=== PATIENT | female | born 1935 | race Caucasian/White ===

== ENCOUNTER → 2017-09-20 10:07 | Outpatient (CLI) | payer MEDICARE, SELFPAY ==
[2017-09-20 11:30] LABS: Hematocrit 42.7 % (36-46); Hemoglobin 14.5 g/dL (12.0-16.0); Mean Corpuscular HGB Conc 34.1 % (30-36); Mean Corpuscular Hemoglobin 30.9 PG (26-34); Mean Corpuscular Volume 90.8 fL (80-100); Platelet Count 205 X10^3/uL (150-400); Red Cell Distribution Width 13.4 % (11.6-14.8); White Blood Cell Count 6.1 X10^3/uL (4.5-11.0)
[2017-09-20 11:54] LABS: Neutrophils Absolute Manual 4148 /uL (3000-5900); Total Cells Counted 100
[2017-09-20 12:02] LABS: Alanine Aminotransferase 38 IU/L (9-52); Albumin 4.1 g/dL (3.5-5.0); Albumin Globulin Ratio 1.3 (1.0-2.8); Alkaline Phosphatase 86 U/L (38-126); Aspartate Aminotransferase 38 IU/L (14-36); BUN Creatinine Ratio 35.7 (6-22); Bilirubin Total 0.6 mg/dL (0.2-1.3); Calcium 10.2 mg/dL (8.4-10.2); Cholesterol 201 mg/dL (140-199); Estimated Glomerular Filt Rate > 60.0 mL/min (>60); Globulin 3.2 g/dL (1.7-4.1); Glucose 99 mg/dL (80-110); HDL Cholesterol 62 mg/dL (40-60); HEMOLYSIS 25 (0-50); LDL Cholesterol Calculated 118 mg/dL (<100); Potassium 4.7 mmol/L (3.4-5.1); Sodium 139 mmol/L (137-145); Total Protein 7.3 g/dL (6.3-8.2); Triglycerides 106 mg/dL (35-150)
[2017-09-20 12:18] LABS: Vitamin D 25 Hydroxy (D3) 44.7 ng/mL (30.0-100.0)
[2017-09-22 15:29] LABS: Parathyroid Hormone Int 70 pg/mL (14-64)
== END ==
PROVIDERS: Family Provider Family Medicine; PCP Family Medicine; Visit Provider Family Medicine
DX: E21.3 Hyperparathyroidism, unspecified (principal); I10 Essential (primary) hypertension; Z13.820 Encounter for screening for osteoporosis
CPT/HCPCS: 36415; 80053; 80061; 82306; 83970; 85025

== ENCOUNTER → 2017-12-13 09:48 | Outpatient (CLI) | payer MEDICARE, SELFPAY ==
[2017-12-13 12:17] LABS: Vitamin D 25 Hydroxy (D3) 52.1 ng/mL (30.0-100.0)
[2017-12-15 14:44] LABS: Parathyroid Hormone Int 54 pg/mL (14-64)
== END ==
PROVIDERS: Family Provider Family Medicine; PCP Family Medicine; Visit Provider Internal Medicine Endocrinology, Diabetes & Metabolism
DX: M81.0 Age-related osteoporosis without current pathological fracture (principal); E21.3 Hyperparathyroidism, unspecified; Z78.0 Asymptomatic menopausal state; Z90.722 Acquired absence of ovaries, bilateral
CPT/HCPCS: 36415; 77080; 82306; 83970

== ENCOUNTER → 2018-03-13 09:52 | Outpatient (CLI) | payer MEDICARE, SELFPAY ==
[2018-03-13 10:54] LABS: Add Manual Diff / Slide Review NO; Basophils Percent Auto 0.9 % (0-2); Eosinophils Percent Auto 3.6 % (2-4); Hematocrit 43.3 % (36-46); Hemoglobin 14.6 g/dL (12.0-16.0); Lymphocytes Percent Auto 22.2 % (25-40); Mean Corpuscular HGB Conc 33.7 % (30-36); Mean Corpuscular Hemoglobin 30.3 PG (26-34); Mean Corpuscular Volume 90.2 fL (80-100); Monocytes Percent Auto 6.9 % (3-14); Neutrophils Absolute Auto 3600 /uL (3000-5900); Neutrophils Percent Auto 66.4 % (50-75); Platelet Count 212 X10^3/uL (150-400); Red Blood Cell Count 4.81 X10^6/uL (4.0-5.2); Red Cell Distribution Width 13.2 % (11.6-14.8); White Blood Cell Count 5.5 X10^3/uL (4.5-11.0)
[2018-03-13 11:16] LABS: Alanine Aminotransferase 30 IU/L (9-52); Albumin 4.2 g/dL (3.5-5.0); Albumin Globulin Ratio 1.4 (1.0-2.8); Alkaline Phosphatase 53 U/L (38-126); Aspartate Aminotransferase 30 IU/L (14-36); BUN Creatinine Ratio 31.4 (6-22); Bilirubin Total 0.5 mg/dL (0.2-1.3); Blood Urea Nitrogen 22 mg/dL (7-17); Calcium 10.4 mg/dL (8.4-10.2); Carbon Dioxide 29 mmol/L (22-32); Chloride 104 mmol/L (98-107); Cholesterol 179 mg/dL (140-199); Estimated Glomerular Filt Rate > 60.0 mL/min (>60); Glucose 93 mg/dL (80-110); HDL Cholesterol 65 mg/dL (40-60); HEMOLYSIS < 15 (0-50); LDL Cholesterol Calculated 95 mg/dL (<100); Potassium 4.5 mmol/L (3.4-5.1); Sodium 142 mmol/L (137-145); Total Protein 7.2 g/dL (6.3-8.2); Triglycerides 94 mg/dL (35-150)
[2018-03-13 11:56] LABS: Vitamin D 25 Hydroxy (D3) 45.4 ng/mL (30.0-100.0)
[2018-03-13 12:09] LABS: Thyroid Stimulating Hormone 2.11 uIU/mL (0.47-4.68)
== END ==
PROVIDERS: PCP Family Medicine; Visit Provider Family Medicine
DX: E21.3 Hyperparathyroidism, unspecified (principal); E83.52 Hypercalcemia; I10 Essential (primary) hypertension; M81.0 Age-related osteoporosis without current pathological fracture
CPT/HCPCS: 36415; 80053; 80061; 82306; 84443; 85025

== ENCOUNTER → 2018-03-29 13:53 | Outpatient (CLI) | payer MEDICARE, SELFPAY ==
--- NOTE | 2018-03-29 13:54 | DI.ECHO.S_ITS ---
[facility]+ [facility] +---------+ : : [address] : : : : [id number] : : : : Phone: [phone]---------+ Echocardiogram Report + + :Name: CESARIO DRAKE Study Date: 03/29/2018 Height: 65 in : :[facility] Weight: 190 lb : : Gender: Female BSA: 1.9 m2 : :: 1935 Age: 83 yrs BP: 164/72 mmHg: :Reason For Study: Edema : : Performed By: Tanna Nuñez : :Referring: JAE GAGE : + + Interpretation Summary The left ventricular cavity is small. There is mild concentric left ventricular hypertrophy. The ejection fraction is estimated to be 75-80%. The left ventricle is hyperdynamic. The right ventricle grossly appears normal in size with probable normal systolic function. Right ventricular systolic pressure is normal. There is thickening and sclerosis with reduced leaflet excursion of the non- coronary cusp of the aortic valve. Mild aortic stenosis is present. The calculated aortic valve area is 1.7 cm2. The IVC is of normal diameter and collapses greater than 50% with a sniff. This suggests a low right atrial pressure of 3 mm Hg. No other echocardiographic abnormalities seen. Given this patient's normal right ventricular function, normal pulmonary artery pressure and normal CVP, the edema is unlikely related to a cardiac cause. The small hyperdynamic left ventricle also suggests some degree of volume depletion. Clinical correlation suggested. Procedure: A two-dimensional transthoracic echocardiogram with color flow and Doppler was performed. The study quality was technically adequate. There is no prior echocardiogram noted for this patient. The patient was in normal sinus rhythm during the exam. Left Ventricle: The left ventricular cavity is small. There is mild concentric left ventricular hypertrophy. The ejection fraction is estimated to be 75-80%. The left ventricle is hyperdynamic. Diastolic parameters suggest a relaxation abnormality of the left ventricle, consistent with probable normal filling pressures. Right Ventricle: The right ventricle grossly appears normal in size with probable normal systolic function. Atria: The left atrial size is normal. Right atrial size is normal. The interatrial septum is intact with no evidence for an atrial septal defect. Mitral Valve: The mitral valve is grossly normal. There is trace mitral regurgitation. Aortic Valve: Leaflet mobility is moderately reduced. The aortic valve is moderately calcified. There is thickening and sclerosis with reduced leaflet excursion of the non-coronary cusp of the aortic valve. Mild aortic stenosis is present. The calculated aortic valve area is 1.7 cm2. The aortic valve area is 1.3 centimeters squared by planimetry. The peak aortic velocity is 2.3 m/sec. The aortic valve mean gradient is 10 mmHg. Severity ratio 0.53. No aortic regurgitation is present. Tricuspid Valve: The tricuspid valve leaflets are thin and pliable. There is trace tricuspid regurgitation. The right ventricular systolic pressure is estimated to be at least 32 mmHg based on an estimated right atrial pressure of 3 mm Hg. Right ventricular systolic pressure is normal. Pulmonic Valve: The pulmonic valve is not well seen, but is grossly normal. There is trace pulmonic regurgitation. Great Vessels: The aortic root is normal size. The dimensions of the ascending aorta are normal. The IVC is of normal diameter and collapses greater than 50% with a sniff. This suggests a low right atrial pressure of 3 mm Hg. Pericardium/ Pleura There is no pericardial effusion. There is no pleural effusion. MMode/2D Measurements & Calculations LVIDd: 4.6 cm LVOT diam: 2.0 cm LVIDs: 2.4 cm Ao root diam: 2.7 cm FS: 47.2 % Aortic Jxn: 2.3 cm EPSS: 0.28 cm asc Aorta Diam: 2.9 cm IVSd: 0.97 cm Ao Arch Diam (Prox Trans): 2.5 cm LVPWd: 0.87 cm LV ceballos. diameter/BSA (cm/m^2): 2.4 LV sys. diameter/BSA (cm/m^2): 1.3 LA dimension: 3.1 cm RA long axis: 4.1 cm LA A2 area: 14.3 cm2 RA area: 12.8 cm2 LA A4 area: 15.4 cm2 RA vol: 34.0 ml LA length (vol): 4.4 cm RA : 17.6 ml/m2 LA vol: 42.4 ml IVC diam: 1.8 cm LA vol index: 21.9 ml/m2 MEGHANA (plan): 1.3 cm2 Doppler Measurements & Calculations Ao V2 max: 229.3 cm/sec LVOT Max Curt: 100.9 cm/sec Ao V2 mean: 136.9 cm/sec LV V1 max P.1 mmHg Ao max P.0 mmHg LV V1 VTI: 26.9 cm Ao mean P.5 mmHg MEGHANA(I,D): 1.7 cm2 Ao V2 VTI: 50.9 cm MEGHANA(V,D): 1.4 cm2 sev ratio: 0.53 MEGHANA indexed to BSA (cm^2/m^2): 0.89 MV E max curt: 70.6 cm/sec TR max curt: 267.8 cm/sec MV A max curt: 93.5 cm/sec TR max P.7 mmHg MV E/A: 0.76 PA V2 max: 99.7 cm/sec Med Peak E' Curt: 6.0 cm/sec PA V2 mean: 63.8 cm/sec E/E' med: 11.8 PA mean P.0 mmHg Lat Peak E' Curt: 6.7 cm/sec PA Accel Time: 0.11 sec E/E' lat: 10.5 E/e' average: 11.1 MV dec time: 0.32 sec MV P1/2t: 95.1 msec MV P1/2t max curt: 71.0 cm/sec MVA(P1/2t): 2.3 cm2 Reading Physician:03:39 PM
== END ==
PROVIDERS: Family Provider Family Medicine; PCP Family Medicine; Visit Provider Family Medicine
DX: I35.0 Nonrheumatic aortic (valve) stenosis (principal); R60.0 Localized edema
CPT/HCPCS: 93306

== ENCOUNTER → 2018-08-03 12:51 | Outpatient (CLI) | payer MEDICARE, SELFPAY ==
--- NOTE | 2018-08-03 | DI.MRI.S_ITS ---
PROCEDURE: MR THORACIC SPINE WO CON INDICATIONS: THORACIC SPINE PAIN. TECHNIQUE: Noncontrast sagittal T1 spine echo and T2 fast spin echo, sagittal STIR, axial T1 and T2 fast spin echo through the thoracic spine. COMPARISON: [facility], RG, XR C-SPINE 2-3V, 04/23/2006, 12:29. [facility], CT, L-SPINE WITHOUT CONTRAST, 02/16/2010, 19:02. FINDINGS: Image quality: Excellent. Alignment and Curvature: Posterior fusion is present at T1-T2. Bone Marrow: Marrow is of normal overall signal. No acute vertebral body compression fractures. Spinal Cord: Visualized spinal cord is normal in size and signal. Paraspinous Soft Tissues: No paravertebral masses. Miscellaneous: On axial images, central canal and foramina appear widely patent at all scanned levels. Multilevel disc desiccation is present. Prominent lateral disc osteophyte complexes are present bilaterally at T10-11, right T9-T10. IMPRESSION: 1. No spinal stenosis or foraminal narrowing. Multilevel disc desiccation. Dictated by: Gracie Oconnor M.D. on 08/05/2018 at 13:05 Approved by: Gracei Oconnor M.D. on 08/05/2018 at 13:47
== END ==
PROVIDERS: PCP Family Medicine; Visit Provider Physical Medicine & Rehabilitation
DX: M54.6 Pain in thoracic spine (principal); Z98.1 Arthrodesis status
CPT/HCPCS: 72146

== ENCOUNTER → 2018-08-23 13:09 | Outpatient (CLI) | payer MEDICARE, SELFPAY ==
--- NOTE | 2018-08-23 | DI.MRI.S_ITS ---
PROCEDURE: MR LUMBAR SPINE WO CON INDICATIONS: Radiculopathy, lumbar region TECHNIQUE: Noncontrast sagittal T1 spin echo and T2 fast echo, sagittal STIR, axial T1 and T2 fast spin echo through the lumbar spine. In cases with scoliosis, additional coronal T2 fast spin echo may be performed. COMPARISON: [facility], MR, L-SPINE WITHOUT CONTRAST, 11/05/2006, 9:39. [facility], MR, L-SPINE WITHOUT CONTRAST, 06/17/2014, 10:10. [facility], MR, MR THORACIC SPINE WO CON, 08/03/2018, 13:08. [facility], CT, L-SPINE WITHOUT CONTRAST, 02/16/2010, 19:02. [facility], MR, L-SPINE WITHOUT CONTRAST, 11/18/2008, 19:18. FINDINGS: Image quality: Diagnostic, with note made of motion artifact. Alignment and Curvature: Mild grade 1 anterolisthesis is seen at L3-L4 and L4-L5. S-shaped scoliotic curvature is seen. Bone Marrow: Marrow is of normal overall signal. No acute vertebral body compression fractures. Scattered foci are seen, which are hyperintense on T1-weighted and T2-weighted imaging, which are most consistent with benign vertebral body hemangiomas. Spinal Cord: Conus medullaris terminates at the L1 level. Visualized cord demonstrates normal signal and size. Paraspinous Soft Tissues: No paravertebral masses. T12-L1: Moderate loss of disc height is seen. Loss of disc signal is seen. Moderate disc bulge is seen, which is eccentric to the left. Likely mild directed endplate osteophytes are present. There is moderate left-sided and no significant right-sided neural foraminal narrowing seen. Mild to moderate central canal narrowing is seen. These degenerative changes are similar to 2015. L1-L2: The disc height is well-preserved. Loss of disc signal is seen at this level. Moderate disc bulge is seen, which is eccentric to the left. There is moderate left-sided and no significant right-sided neural foraminal narrowing seen. [id number] central canal narrowing is seen. When comparison is made with the prior examination, these findings are similar. L2-L3: Moderate loss of disc height is seen. Loss of disc signal is seen. Moderate to prominent disc bulge is seen, which is eccentric to the left. Mild facet joint hypertrophy is seen. Mild to moderate bilateral neural foraminal narrowing is seen. At least moderate central canal narrowing is seen, as on series 6 image 17. When comparison is made with the prior examination, these findings are similar. L3-L4: Mild to moderate loss of disc height and disc signal can be seen at this level. Moderate to prominent disc bulge is seen. Prominent facet hypertrophy is seen. There is moderate right-sided and moderate to severe left-sided neural foraminal narrowing seen. Severe central canal narrowing is seen at this level, as on series 6 image 21. These imaging findings have progressed compared to the prior MRI. L4-L5: Mild to moderate loss of disc height and disc signal can be seen at this level. Moderate disc bulge is seen, which is eccentric to the right. Moderate to prominent right-sided and moderate left-sided neural foraminal narrowing can be seen. There is mild to moderate left-sided and moderate right-sided neural foraminal narrowing seen. There has been removal of portions of the posterior elements. Mild central canal narrowing is seen. When comparison is made with the prior examination, these findings are similar. L5-S1: At least moderate loss of disc height and disc signal can be seen at this level. Moderate generalized disc bulge is seen. Mild facet joint hypertrophy is seen. There is minimal right-sided and moderate left-sided neural foraminal narrowing. No significant central canal narrowing can be seen. No significant change from the prior. IMPRESSION: Multiple levels of lumbar spine degenerative change are seen, which are relatively similar compared to 2015. However, there is mild progression of degenerative change at L3-L4 compared to the prior MRI. Dictated by: Curtis Hernandez M.D. on 08/23/2018 at 13:36 Approved by: Curtis Hernandez M.D. on 08/23/2018 at 13:47
== END ==
PROVIDERS: PCP Family Medicine; Visit Provider Physical Medicine & Rehabilitation
DX: M54.16 Radiculopathy, lumbar region (principal); M47.9 Spondylosis, unspecified
CPT/HCPCS: 72148

== ENCOUNTER → 2018-10-22 12:09 | Outpatient (CLI) | payer MEDICARE, SELFPAY ==
[2018-10-22 13:02] LABS: Alanine Aminotransferase 23 IU/L (9-52); Albumin 4.2 g/dL (3.5-5.0); Albumin Globulin Ratio 1.4 (1.0-2.8); Alkaline Phosphatase 75 U/L (38-126); Aspartate Aminotransferase 32 IU/L (14-36); Bilirubin Total 0.5 mg/dL (0.2-1.3); Blood Urea Nitrogen 20 mg/dL (7-17); Calcium 10.6 mg/dL (8.4-10.2); Carbon Dioxide 30 mmol/L (22-32); Chloride 101 mmol/L (98-107); Estimated Glomerular Filt Rate > 60.0 mL/min (>60); Globulin 3.1 g/dL (1.7-4.1); Glucose 94 mg/dL (80-110); HEMOLYSIS 20 (0-50); Potassium 4.7 mmol/L (3.4-5.1); Sodium 139 mmol/L (137-145); Total Protein 7.3 g/dL (6.3-8.2)
[2018-10-22 14:32] LABS: TSH w/ Reflex to FT4 1.88 uIU/mL (0.47-4.68)
[2018-10-22 15:26] LABS: Vitamin D 25 Hydroxy (D3) 47.6 ng/mL (30.0-100.0)
[2018-10-24 14:59] LABS: Parathyroid Hormone Int 47 pg/mL (14-64)
[2018-10-26 13:19] LABS: Ionized Calcium 5.9 mg/dL (4.8-5.6)
== END ==
PROVIDERS: PCP Family Medicine; Visit Provider Internal Medicine
DX: M85.851 Other specified disorders of bone density and structure, right thigh (principal); Z78.0 Asymptomatic menopausal state; E04.2 Nontoxic multinodular goiter; E21.0 Primary hyperparathyroidism; Z90.722 Acquired absence of ovaries, bilateral; Z87.891 Personal history of nicotine dependence
CPT/HCPCS: 36415; 77080; 80053; 82306; 82330; 83970; 84100; 84443

== ENCOUNTER → 2019-10-02 12:44 | Outpatient (CLI) | payer MEDICARE, SELFPAY ==
[2019-10-02 13:47] LABS: Alanine Aminotransferase 22 IU/L (<35); Albumin 4.2 g/dL (3.5-5.0); Albumin Globulin Ratio 1.4 (1.0-2.8); Alkaline Phosphatase 53 U/L (38-126); Aspartate Aminotransferase 29 IU/L (14-36); BUN Creatinine Ratio 34.2 (6-22); Bilirubin Total 0.6 mg/dL (0.2-1.3); Blood Urea Nitrogen 27 mg/dL (7-17); Calcium 11.1 mg/dL (8.4-10.2); Carbon Dioxide 30 mmol/L (22-32); Chloride 101 mmol/L (98-107); Estimated Glomerular Filt Rate > 60.0 mL/min (>60); Glucose 138 mg/dL (80-110); HEMOLYSIS < 15 (0-50); Magnesium 2.1 mg/dL (1.6-2.3); Potassium 4.7 mmol/L (3.4-5.1); Sodium 139 mmol/L (137-145); Total Protein 7.2 g/dL (6.3-8.2)
== END ==
PROVIDERS: Nurse Practitioner; PCP Student in an Organized Health Care Education/Training Program; Referring Provider Student in an Organized Health Care Education/Training Program; Visit Provider Student in an Organized Health Care Education/Training Program
DX: Z51.81 Encounter for therapeutic drug level monitoring (principal); I10 Essential (primary) hypertension; Z79.899 Other long term (current) drug therapy
CPT/HCPCS: 36415; 80053; 83735

== ENCOUNTER → 2019-10-10 14:26 | Outpatient (CLI) | payer MEDICARE, SELFPAY ==
[2019-10-10 16:22] LABS: BUN Creatinine Ratio 37.3 (6-22); Blood Urea Nitrogen 22 mg/dL (7-17); Calcium 10.8 mg/dL (8.4-10.2); Carbon Dioxide 28 mmol/L (22-32); Chloride 101 mmol/L (98-107); Estimated Glomerular Filt Rate > 60.0 mL/min (>60); Glucose 93 mg/dL (80-110); HEMOLYSIS < 15 (0-50); Magnesium 2.1 mg/dL (1.6-2.3); Potassium 4.1 mmol/L (3.4-5.1); Sodium 137 mmol/L (137-145)
[2019-10-10 17:17] LABS: Vitamin D 25 Hydroxy (D3) 54.3 ng/mL (30.0-100.0)
[2019-10-11 10:08] LABS: Calcium 10.6 mg/dL (8.7-10.3); Parathyroid Hormone, Intact 46 pg/mL (15-65)
== END ==
PROVIDERS: PCP Student in an Organized Health Care Education/Training Program; Referring Provider Nurse Practitioner; Visit Provider Nurse Practitioner
DX: E21.3 Hyperparathyroidism, unspecified (principal); E83.52 Hypercalcemia; I10 Essential (primary) hypertension; R60.0 Localized edema; Z79.899 Other long term (current) drug therapy
CPT/HCPCS: 36415; 80048; 82306; 82310; 83735; 83970

== ENCOUNTER → 2019-10-31 14:03 | Outpatient (CLI) | payer MEDICARE, SELFPAY ==
[2019-10-31 15:17] LABS: BUN Creatinine Ratio 33.3 (6-22); Blood Urea Nitrogen 22 mg/dL (7-17); Calcium 10.8 mg/dL (8.4-10.2); Carbon Dioxide 29 mmol/L (22-32); Chloride 99 mmol/L (98-107); Estimated Glomerular Filt Rate > 60.0 mL/min (>60); Glucose 119 mg/dL (80-110); HEMOLYSIS < 15 (0-50); Magnesium 2.2 mg/dL (1.6-2.3); Potassium 4.3 mmol/L (3.4-5.1); Sodium 136 mmol/L (137-145)
== END ==
PROVIDERS: PCP Student in an Organized Health Care Education/Training Program; Referring Provider Nurse Practitioner; Visit Provider Nurse Practitioner
DX: E83.52 Hypercalcemia (principal); I10 Essential (primary) hypertension; R60.0 Localized edema; T50.2X5A Adverse effect of carbonic-anhydrase inhibitors, benzothiadiazides and other diuretics, initial encounter
CPT/HCPCS: 36415; 80048; 83735

== ENCOUNTER → 2019-11-21 13:34 | Outpatient (CLI) | payer MEDICARE, SELFPAY | PROVIDERS: PCP Student in an Organized Health Care Education/Training Program; Referring Provider Student in an Organized Health Care Education/Training Program; Visit Provider Student in an Organized Health Care Education/Training Program | DX: Z13.820 Encounter for screening for osteoporosis (principal); Z78.0 Asymptomatic menopausal state; M85.851 Other specified disorders of bone density and structure, right thigh; E21.3 Hyperparathyroidism, unspecified; Z90.722 Acquired absence of ovaries, bilateral; Z87.891 Personal history of nicotine dependence | CPT/HCPCS: 77080 ==

== ENCOUNTER → 2020-08-25 12:53 | Outpatient (CLI) | payer MEDICARE, SELFPAY ==
[2020-08-25 14:01] LABS: BUN Creatinine Ratio 28.1 (6-22); Blood Urea Nitrogen 25 mg/dL (7-17); Calcium 10.7 mg/dL (8.4-10.2); Carbon Dioxide 29 mmol/L (22-32); Chloride 103 mmol/L (98-107); Estimated Glomerular Filt Rate > 60.0 mL/min (>60); Glucose 102 mg/dL (80-110); HEMOLYSIS < 15 (0-50); Potassium 4.1 mmol/L (3.4-5.1); Sodium 138 mmol/L (137-145)
[2020-08-25 15:01] LABS: Thyroid Stimulating Hormone 1.16 uIU/mL (0.47-4.68)
[2020-08-26 10:10] LABS: Calcium 10.6 mg/dL (8.7-10.3); Parathyroid Hormone, Intact 63 pg/mL (15-65)
== END ==
PROVIDERS: PCP Student in an Organized Health Care Education/Training Program; Referring Provider Student in an Organized Health Care Education/Training Program; Visit Provider Student in an Organized Health Care Education/Training Program
DX: E21.3 Hyperparathyroidism, unspecified (principal); I10 Essential (primary) hypertension
CPT/HCPCS: 36415; 80048; 82310; 83970; 84443

== ENCOUNTER 2020-09-28 11:44 | Emergency (ER) | payer MEDICARE, SELFPAY ==
[2020-09-28] VITALS (10 sets, daily range): BP systolic 165–187; BP diastolic 71–80; PULSE 66–84; RESP 16–22; TEMP 37.1; O2SAT 95–100; BMI 28.7
--- NOTE | 2020-09-28 12:11 | DI.RAD.S_ITS ---
PROCEDURE: XR CHEST 1V INDICATIONS: chest pain TECHNIQUE: One view of the chest was acquired. COMPARISON: None. FINDINGS: Surgical changes and devices: Effusion at the T1-T2. Lungs and pleura: Lungs are clear. No pleural effusions or pneumothorax. Mediastinum: Mediastinal contours appear normal. Heart size is normal. Bones and chest wall: No suspicious bony lesions. Overlying soft tissues appear unremarkable. IMPRESSION: No acute cardiopulmonary disease. Dictated by: Wild Fernandez M.D. on 09/28/2020 at 13:01 Approved by: Wild Fernandez M.D. on 09/28/2020 at 13:05
--- NOTE | 2020-09-28 12:11 | PC.NURSE ---
pt states she takes 20mg of Lasix and still having swelling, she is concerned for CHF. pt also fell 2 days ago and it concerned for a frontal headache and her neck because she has hardware in it
[2020-09-28 13:04] LABS: Add Manual Diff / Slide Review NO; Basophils Absolute Auto 100 /uL (0-100); Basophils Percent Auto 0.8 % (0-2); Eosinophils Absolute Auto 100 /uL (0-450); Eosinophils Percent Auto 1.1 % (2-4); Hematocrit 44.5 % (36-46); Hemoglobin 14.7 g/dL (12.0-16.0); Lymphocytes Absolute Auto 1100 /uL (1100-4500); Lymphocytes Percent Auto 14.9 % (25-40); Mean Corpuscular HGB Conc 32.9 % (30-36); Mean Corpuscular Hemoglobin 29.7 PG (26-34); Mean Corpuscular Volume 90.3 fL (80-100); Monocytes Absolute Auto 300 /uL (0-900); Monocytes Percent Auto 4.7 % (3-14); Neutrophils Absolute Auto 5800 /uL (1500-7000); Neutrophils Percent Auto 78.5 % (50-75); Platelet Count 240 X10^3/uL (150-400); Red Blood Cell Count 4.93 X10^6/uL (4.0-5.2); Red Cell Distribution Width 13.7 % (11.6-14.8); White Blood Cell Count 7.4 X10^3/uL (4.5-11.0)
[2020-09-28 13:19] LABS: Prothrombin Time 10.9 SECONDS (10.1-12.7)
[2020-09-28 13:21] LABS: PTT Partial Thromboplastin Tim 36 SECONDS (26.4-36.2)
[2020-09-28 13:23] LABS: Alanine Aminotransferase 27 IU/L (<35); Albumin 4.6 g/dL (3.5-5.0); Albumin Globulin Ratio 1.2 (1.0-2.8); Alkaline Phosphatase 73 U/L (38-126); Aspartate Aminotransferase 39 IU/L (14-36); BUN Creatinine Ratio 24.3 (6-22); Bilirubin Total 0.6 mg/dL (0.2-1.3); Blood Urea Nitrogen 18 mg/dL (7-17); Calcium 10.9 mg/dL (8.4-10.2); Carbon Dioxide 29 mmol/L (22-32); Chloride 102 mmol/L (98-107); Creatine Kinase 45 U/L (30-135); Estimated Glomerular Filt Rate > 60.0 mL/min (>60); Globulin 3.7 g/dL (1.7-4.1); Glucose 113 mg/dL (80-110); HEMOLYSIS < 15 (0-50); Lipase 143 U/L (23-300); Potassium 4.3 mmol/L (3.4-5.1); Sodium 137 mmol/L (137-145); Total Protein 8.3 g/dL (6.3-8.2)
[2020-09-28 13:35] LABS: Troponin I < 0.012 ng/mL (0.01-0.034)
--- NOTE | 2020-09-28 14:03 | ED.FALL ---
HPI - Fall General Chief Complaint: Fall Stated Complaint: FELL HIT HEAD DIZZY BLOOD PRESSURE IS UP Time Seen by Provider: 09/28/20 12:57 Source: patient and family (daughter) Mode of arrival: Wheelchair History of Present Illness HPI Narrative: This is an 85-year-old female comes emergency department with complaint of fall on Sunday, 2 days ago. Patient states she was walking when she just fell to the ground. She states she does not think she tripped in the family states there is anything present. She is bit dizzy. She does have history of vertigo. She also has had elevated blood pressure today, it was 120 this morning. Patient states she did hit the back of her head. She has some discomfort across her shoulders and in her neck but describes as mild. She does have a significant history for vertebral fracture and surgical repair prior as well as post. She denies any midline pain. The area is carpeted, there were no objects that she struck other than the floor. She has a little soreness in her left hip on Sunday but none continued. She was able to ambulate with her walker which is how she normally moves but is continued felt a little foggy. She has a history of memory issues but does not acutely worsened or more confused she denies any chest pain or shortness of breath. She denies any other headache in the frontal area. No vision changes. No numbness, tingling or weakness. She has little bit pain in her right knee but states this is also chronic. She has not any nausea or vomiting. No other GI or urinary symptoms. She is coming by her daughter who helps to augment her past medical history. She has had neck surgery x2, the 1st was surgical fixation, she had a fracture and had a 2nd surgical repair. She has also had a prior hysterectomy and back surgery on her lower back. She takes aspirin 81 mg daily no other anticoagulants. No tobacco, alcohol or illicit. Dr. White is her PCP. Related Data Home Medications Medication Instructions Recorded Confirmed BIOTIN/CA/CR/CU/FOLIC ACID/I 1 ctb PO #0 12/21/10 03/24/20 (CENTRUM SILVER) Fish Oil (#CARDI-OMEGA) 1,000 mg PO BID #0 12/21/10 03/24/20 [VITAMIN D] 1,000 iu #0 12/21/10 03/24/20 [flaxseed] #0 04/15/16 03/24/20 [turmeric] #0 04/15/16 03/24/20 aspirin 81 mg tablet,delayed 81 mg PO DAILY 03/19/18 03/24/20 release ibuprofen 200 mg-diphenhydramine 2 cap PO BEDTIME PRN 03/19/18 03/24/20 HCl 25 mg capsule calcium citrate 315 mg 1 tab PO DAILY 09/26/19 03/24/20 calcium-vitamin D3 6.25 mcg (250 unit) tablet lutein PO 09/26/19 03/24/20 Previous Rx's Medication Instructions Recorded albuterol sulfate 90 mcg/actuation 2 puff INHALATION Q4H PRN #8.5 gram 07/14/19 aerosol inhaler furosemide 20 mg tablet 20 mg PO DAILY #90 tab 10/24/19 lisinopril 40 mg tablet 40 mg PO Q DAY #90 tab 01/09/20 alendronate 70 mg tablet 70 mg PO QWEEK #12 tab 02/23/20 conjugated estrogens 0.625 mg 0.625 mg PO QDAY #90 tab 08/04/20 tablet Allergies Allergy/AdvReac Type Severity Reaction Status Date / Time Penicillins [PENICILLINS] Allergy Severe Rash and Verified 09/28/20 11:57 anaphlaxis codeine [CODEINE] Allergy Mild Nausea & Verified 09/28/20 11:57 Vomiting Review of Systems Review of Systems ROS Unobtainable: All systems reviewed & are unremarkable except as noted in HPI and below Patient History Medical History Acne Asthma (1940) Bilateral lower extremity edema Cervical spine disease (1994) Chicken pox (~1940) Chronic back pain (1994) Eczema Fibroids (1987) Foot pain (2012) Fractures Gluteal abscess (09/02/13) Hayfever (1940) Hemorrhoids (1966) History of heavy periods (1987) Hypercalcemia Hypertension Hypertrophic lichen planus of vulva Injury of cervical spine (05/20/17) Lumbar spine pain (1994) Measles (1938) Oral lichen planus (1978) Osteopenia (2012) Osteoporosis (2018) Spinal stenosis, cervical region Spinal stenosis, lumbosacral region Vertigo (1970) Surgical History Anesthesia History of ankle surgery (1979) History of arthroscopy of knee History of cervical spinal surgery (2005) History of knee replacement (2007) History of lumbosacral spine surgery (2010) History of spinal fusion (05/20/17) Status post hysterectomy (1987) Status post tonsillectomy and adenoidectomy (0) Family History Father Diabetes mellitus Heart disease Brother No problems noted. Grandfather No problems noted. Grandmother No problems noted. Mother Pancreatic cancer Grandmother No problems noted. Social History Smoking Status: Never smoker Smoking Status: Never smoker alcohol intake frequency: holidays/special occasions only Substance Use Type: does not use Exam Narrative Exam Narrative: GEN: well nourished, well appearing elderly female, alert and oriented, patient appears to be in mild distress. HEENT: Atraumatic, pupils are equal round reactive to light, extraocular movements are intact, nares are clear, TMs are clear with no fluid, there is no conjunctival pallor. Throat is clear without any exudates, erythema, tonsillar enlargement or uvular deviation, no facial droop. HEART: Regular rate and rhythm without murmur, clicks, rubs. Pulses are equal in upper extremities LUNGS:Lungs clear to auscultation, no wheezes, rales, crackles, chest moves symmetrically ABD:bowel sounds normal, soft, non-tender, no guarding, rebound, rigidity, no masses noted, no hepatosplenomegaly :No CVA tenderness MSCL: Non-tender, no bony tenderness in the right knee, patient does have some discomfort with trying to flexor strain. No warmth, erythema or swelling noted. No muscle atrophy, muscles strength 5/5 upper and lower extremities, full range of motion. BACK: No cervical, thoracic or lumbar vertebral point tenderness. Patient has a healed midline incision with loss of subcutaneous tissue over the C6-7 region but is nontender. NEURO:CN 2-12 intact, sensation normal. finger nose finger test normal, heel jennings test normal with left foot, mild difficulty with right foot the patient states she has pain in the right knee. SKIN: No rash, erythema ecchymosis noted. Initial Vital Signs Initial Vital Signs: Vital Signs Temperature 98.8 F 09/28/20 11:50 Pulse Rate 80 09/28/20 11:50 Respiratory Rate 16 09/28/20 11:50 Blood Pressure 175/76 H 09/28/20 11:50 Pulse Oximetry 100 09/28/20 11:50 Scores NIH Stroke Scale Level of Conciousness: Alert, keenly responsive Ask month/age: Answers both questions correctly. Open/close eyes, close hand: Performs both tasks correctly Best gaze horizontal: Normal Visual cox: No visual loss Facial palsy: Normal symetrical movement Left arm drift: No drift for full 10 sec Right arm drift: No drift for full 10 sec Left leg drift: No drift for full 5 sec Right leg drift: No drift for full 5 sec Limb ataxia: Present in one limb (patient has pain in knee which she states is causing difficulty.) Sensory on face/arms/legs: Normal, no sensory loss Best language: No aphasia, normal Dysarthria: Normal Extinction or inattention: No abnormality Total NIH Stroke scale score: 1 Course Orders Ordered: ED Orders 09/28/20 12:11 XR chest 1V Stat EKG-12 Lead Stat 09/28/20 12:51 Complete Blood Count AUTO DIFF Stat Comprehensive Metabolic Panel Stat Lipase Stat Partial Thromboplastin Time Stat Prothrombin Time INR Stat Troponin & CK Cardiac Panel Stat 09/28/20 14:51 CT cervical spine wo con Stat CT head/brain wo con Stat 09/28/20 14:56 NT-proBNP (BNP-Adult 18+) Stat Vital Signs Vital signs: Vital Signs - 8 hr 09/28/20 11:50 09/28/20 13:15 09/28/20 13:21 Temperature 98.8 F Pulse Rate 80 74 72 Respiratory Rate 16 20 18 Blood Pressure 175/76 H 175/71 H Pulse Oximetry 100 95 98 09/28/20 13:30 09/28/20 14:00 09/28/20 14:14 Temperature Pulse Rate 68 70 76 Respiratory Rate 18 18 22 Blood Pressure 172/76 H 177/75 H 187/79 H Pulse Oximetry 97 98 97 09/28/20 14:30 09/28/20 15:00 09/28/20 15:26 Temperature Pulse Rate 66 71 74 Respiratory Rate 20 19 22 Blood Pressure 170/80 H Pulse Oximetry 98 97 98 09/28/20 16:28 Temperature Pulse Rate 84 Respiratory Rate Blood Pressure 165/80 H Pulse Oximetry 98 - Fall Lab Data Attestation: I reviewed the patient's lab results. Result diagrams: 09/28/20 12:51 09/28/20 12:51 Labs: Lab Results 09/28/20 09/28/20 09/28/20 Range/Units 12:51 12:51 12:51 WBC 7.4 (4.5-11.0) X10^3/uL RBC 4.93 (4.0-5.2) X10^6/uL Hgb 14.7 (12.0-16.0) g/dL Hct 44.5 (36-46) % MCV 90.3 (80-100) fL MCH 29.7 (26-34) PG MCHC 32.9 (30-36) % RDW 13.7 (11.6-14.8) % Plt Count 240 (150-400) X10^3/uL Neut % (Auto) 78.5 H (50-75) % Lymph % (Auto) 14.9 L (25-40) % [place] % (Auto) 4.7 (3-14) % Eos % (Auto) 1.1 L (2-4) % Baso % (Auto) 0.8 (0-2) % Neut # (Auto) 5800 (9376-6441) /uL Lymph # (Auto) 1100 (4610-0190) /uL [place] # (Auto) 300 (0-900) /uL Eos # (Auto) 100 (0-450) /uL Baso # (Auto) 100 (0-100) /uL PT 10.9 (10.1-12.7) SECONDS INR 1.0 (0.9-1.3) APTT 36 (26.4-36.2) SECONDS Sodium 137 (137-145) mmol/L Potassium 4.3 (3.4-5.1) mmol/L Chloride 102 (98-107) mmol/L Carbon Dioxide 29 (22-32) mmol/L BUN 18 H (7-17) mg/dL Creatinine 0.74 (0.52-1.04) mg/dL Estimated GFR > 60.0 (>60) mL/min BUN/Creatinine Ratio 24.3 H (6-22) Glucose 113 H (80-110) mg/dL Calcium 10.9 H (8.4-10.2) mg/dL Total Bilirubin 0.6 (0.2-1.3) mg/dL AST 39 H (14-36) IU/L ALT 27 (<35) IU/L Alkaline Phosphatase 73 (38-126) U/L Total Creatine Kinase 45 (30-135) U/L CK-MB (CK-2) TNP CK-MB (CK-2) Rel Index TNP Troponin I < 0.012 (0.01-0.034) ng/mL NT-Pro-B Natriuret Pep (<450) pg/mL Total Protein 8.3 H (6.3-8.2) g/dL Albumin 4.6 (3.5-5.0) g/dL Globulin 3.7 (1.7-4.1) g/dL Albumin/Globulin Ratio 1.2 (1.0-2.8) Lipase 143 (23-300) U/L / Range/Units 14:56 WBC (4.5-11.0) X10^3/uL RBC (4.0-5.2) X10^6/uL Hgb (12.0-16.0) g/dL Hct (36-46) % MCV (80-100) fL MCH (26-34) PG MCHC (30-36) % RDW (11.6-14.8) % Plt Count (150-400) X10^3/uL Neut % (Auto) (50-75) % Lymph % (Auto) (25-40) % [place] % (Auto) (3-14) % Eos % (Auto) (2-4) % Baso % (Auto) (0-2) % Neut # (Auto) (0726-6085) /uL Lymph # (Auto) (9816-3720) /uL [place] # (Auto) (0-900) /uL Eos # (Auto) (0-450) /uL Baso # (Auto) (0-100) /uL PT (10.1-12.7) SECONDS INR (0.9-1.3) APTT (26.4-36.2) SECONDS Sodium (137-145) mmol/L Potassium (3.4-5.1) mmol/L Chloride (98-107) mmol/L Carbon Dioxide (22-32) mmol/L BUN (7-17) mg/dL Creatinine (0.52-1.04) mg/dL Estimated GFR (>60) mL/min BUN/Creatinine Ratio (6-22) Glucose (80-110) mg/dL Calcium (8.4-10.2) mg/dL Total Bilirubin (0.2-1.3) mg/dL AST (14-36) IU/L ALT (<35) IU/L Alkaline Phosphatase (38-126) U/L Total Creatine Kinase (30-135) U/L CK-MB (CK-2) CK-MB (CK-2) Rel Index Troponin I (0.01-0.034) ng/mL NT-Pro-B Natriuret Pep 140 (<450) pg/mL Total Protein (6.3-8.2) g/dL Albumin (3.5-5.0) g/dL Globulin (1.7-4.1) g/dL Albumin/Globulin Ratio (1.0-2.8) Lipase (23-300) U/L Imaging Data Chest x-ray: Radiologist's Impression: [address] [id number] ReportSigned Patient: Betzy Aviles [facility]#: [id number]: [id number]:[id number]/Sex: 85 / FDate of Service: 09/28/20Loc: EDAccession Number: [id number] Procedure: XR chest 1V Ordering Provider: Linda Gloria D.O. PROCEDURE: XR CHEST 1V INDICATIONS: chest pain TECHNIQUE: One view of the chest was acquired. COMPARISON: None. FINDINGS: Surgical changes and devices: Effusion at the T1-T2. Lungs and pleura: Lungs are clear. No pleural effusions or pneumothorax. Mediastinum: Mediastinal contours appear normal. Heart size is normal. Bones and chest wall: No suspicious bony lesions. Overlying soft tissues appear unremarkable. IMPRESSION: No acute cardiopulmonary disease. Dictated by: Wild Fernandez M.D. on 09/28/2020 at 13:01 Approved by: Wild Fernandez M.D. on 09/28/2020 at 13:05 CT scan - head: Radiologist's Impression: [address] [id number] Scan ReportSigned Patient: Betzy Aviles [facility]#: [id number]: 1936cct:[id number]/Sex: 85 / FDate of Service: 09/28/20Loc: EDAccession Number: [id number] Procedure: CT head/brain wo con Ordering Provider: Linda Gloria D.O. PROCEDURE: CT HEAD/BRAIN WO CON INDICATIONS: dizzy, elevated BP, fall on Sunday, hit head TECHNIQUE: Noncontrast 4.5 mm thick angled axial sections acquired from the foramen magnum to the vertex, with coronal and sagittal reformats. For radiation dose reduction, the following was used: automated exposure control, adjustment of mA and/or kV according to patient size. COMPARISON: [facility], CT, HEAD WITHOUT CONTRAST, 05/19/2017, 5:02. FINDINGS: Image quality: Excellent. CSF spaces: Basal cisterns are patent. No extra-axial fluid collections. The ventricles are symmetric in size and shape. Brain: No intracranial bleeds or masses. 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 There is cerebral volume loss for age, with resultant ventricular and sulcal prominence. There are periventricular and deep white matter chronic small vessel ischemic changes. There is intracranial internal carotid artery atherosclerosis. Skull and face: Calvarium and visualized facial bones appear intact, without suspicious lesions. Sinuses: Mild right maxillary sinus mucosal thickening. The mastoids are clear. IMPRESSION: 1. No acute intracranial abnormalities. 2. Cerebral volume loss and chronic microvascular ischemic changes. Dictated by: Wild Fernandez M.D. on 09/28/2020 at 15:19 Approved by: Wild Fernandez M.D. on 09/28/2020 at 15:21 CT - cervical spine: Radiologist's Impression: [address] [id number] Scan ReportSigned Patient: Betzy Aviles [facility]#: [id number]: [id number]:[id number]/Sex: 85 / FDate of Service: 09/28/20Loc: EDAccession Number: [id number] Procedure: CT cervical spine wo con Ordering Provider: Linda Gloria D.O. PROCEDURE: CT CERVICAL SPINE WO CON INDICATIONS: fall, hx of sx and fracture, mild pain, no midline TECHNIQUE: Noncontrast 3 mm thick sections acquired from the skull base to the T4 level. Sagittal and coronal reformats were then constructed. For radiation dose reduction, the following was used: automated exposure control, adjustment of mA and/or kV according to patient size. COMPARISON: [facility], CT, C-SPINE WITHOUT CONTRAST, 05/19/2017, 5:02. [facility], CT, HEAD WITHOUT CONTRAST, 05/19/2017, 5:02. [facility], CT, CT HEAD/BRAIN WO CON, 09/28/2020, 15:02. FINDINGS: Image quality: Excellent. Bones: No fractures or dislocations. Visualized superior ribs are intact. Extensive postoperative fixation hardware is seen posteriorly from C3 through T2. Anterior fixation hardware is also seen at C3-C4. No findings of hardware failure or hardware loosening are seen. Bone grafting material is noted. Numerous levels of bony vertebral body fusion can be seen. Mild grade 1 anterolisthesis is seen at the C4-C5 level. Soft tissues: Prevertebral soft tissues are normal in thickness. No paravertebral hematomas. No apical pneumothoraces. IMPRESSION: No acute fractures are seen. Extensive postoperative hardware and fusion changes are seen. Dictated by: Curtis Hernandez M.D. on 09/28/2020 at 14:27 Approved by: Curtis Hernandez M.D. on 09/28/2020 at 14:30 ECG Data Attestation: I personally reviewed and interpreted this ECG as follows: Prior ECG tracings: not available for review Interpretation: Sinus rhythm nonspecific change. Rate of 68, OR 148, QRS is 70 QTC 427. No prior EKGs available. MDM Narrative Medical decision making narrative: This is an 85-year-old female had a fall on Sunday, she has been intermittently dizzy since then but according to the patient and her daughter on repeat check and discussion she has had history of vertigo. She also states that she was able to ambulate this morning without any issue. It is noted she had a difficulty with heel-jennings on her right lower extremity but does have some right knee pain although no bony tenderness. Head CT was negative for bleed. C-spine did not show any acute fracture. She had some mild discomfort but no vertebral tenderness but with her history was felt appropriate to be included. My suspicion for stroke significantly lower after repeat evaluation, her an NIH is technically 1 but this is secondary to knee pain. Patient does have some chronic memory issues we discussed she could have a mild concussion. She does note she has some swelling in her lower extremities from their description is likely more dependent improves when her legs are elevated. She is taking Lasix and has follow-up at 4:30 p.m. today but they have canceled this appointment will likely follow-up this week. We did discuss she can increase her Lasix slightly. Return precautions were discussed with her as well as her daughter who is bedside. Discharge Plan Departure Patient Disposition: Home Clinical Impression: Fall, Hypertension Instructions: DI for Concussion Activity Restrictions/Additional Instructions: Follow up with your physician for recheck. You may increase your Lasix to 40 mg daily for the next 2-3 days to see if this improves your swelling. I would also recommend compression hose and elevating your legs regularly. Return for fevers, severe headaches, altered mental status, new or worsening confusion, any numbness, tingling or weakness, new difficulty with ambulation, persistent vomiting, lightheadedness or passing out or other new or concerning symptoms. Prescriptions: No Action BIOTIN/CA/CR/CU/FOLIC ACID/I (CENTRUM SILVER) 1 ctb PO Qty: 0 RF: 0 Fish Oil (#CARDI-OMEGA) 1,000 mg PO BID Qty: 0 RF: 0 [VITAMIN D] 1,000 iu Qty: 0 RF: 0 [turmeric] Qty: 0 RF: 0 [flaxseed] Qty: 0 RF: 0 albuterol sulfate 90 mcg/actuation HFA aerosol inhaler 2 puff INHALATION Q4H PRN (Reason: wheezing) Qty: 8.5 RF: 1 lisinopril 40 mg tablet 40 mg PO Q DAY Qty: 90 RF: 3 alendronate 70 mg tablet 70 mg PO QWEEK Qty: 12 RF: 3 Premarin 0.625 mg tablet 0.625 mg PO QDAY Qty: 90 RF: 3 aspirin 81 mg tablet,delayed release (DR/EC) 81 mg PO DAILY RF: 0 ibuprofen-diphenhydramine HCl [Advil PM Liqui-Gels] 200-25 mg capsule 2 cap PO BEDTIME PRNRF: 0 lutein PO RF: 0 calcium citrate-vitamin D3 [Citracal + D Maximum] 315 mg- 250 unit tablet 1 tab PO DAILY RF: 0 furosemide 20 mg tablet 20 mg PO DAILY Qty: 90 RF: 1 Referrals: Wil White MD [Primary Care Provider] -
--- NOTE | 2020-09-28 14:51 | DI.CT.S_ITS ---
PROCEDURE: CT HEAD/BRAIN WO CON INDICATIONS: dizzy, elevated BP, fall on Sunday, hit head TECHNIQUE: Noncontrast 4.5 mm thick angled axial sections acquired from the foramen magnum to the vertex, with coronal and sagittal reformats. For radiation dose reduction, the following was used: automated exposure control, adjustment of mA and/or kV according to patient size. COMPARISON: [facility], CT, HEAD WITHOUT CONTRAST, 05/19/2017, 5:02. FINDINGS: Image quality: Excellent. CSF spaces: Basal cisterns are patent. No extra-axial fluid collections. The ventricles are symmetric in size and shape. Brain: No intracranial bleeds or masses. 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 There is cerebral volume loss for age, with resultant ventricular and sulcal prominence. There are periventricular and deep white matter chronic small vessel ischemic changes. There is intracranial internal carotid artery atherosclerosis. Skull and face: Calvarium and visualized facial bones appear intact, without suspicious lesions. Sinuses: Mild right maxillary sinus mucosal thickening. The mastoids are clear. IMPRESSION: 1. No acute intracranial abnormalities. 2. Cerebral volume loss and chronic microvascular ischemic changes. Dictated by: Wild Fernandez M.D. on 09/28/2020 at 15:19 Approved by: Wild Fernandez M.D. on 09/28/2020 at 15:21
--- NOTE | 2020-09-28 14:51 | DI.CT.S_ITS ---
PROCEDURE: CT CERVICAL SPINE WO CON INDICATIONS: fall, hx of sx and fracture, mild pain, no midline TECHNIQUE: Noncontrast 3 mm thick sections acquired from the skull base to the T4 level. Sagittal and coronal reformats were then constructed. For radiation dose reduction, the following was used: automated exposure control, adjustment of mA and/or kV according to patient size. COMPARISON: [facility], CT, C-SPINE WITHOUT CONTRAST, 05/19/2017, 5:02. [facility], CT, HEAD WITHOUT CONTRAST, 05/19/2017, 5:02. [facility], CT, CT HEAD/BRAIN WO CON, 09/28/2020, 15:02. FINDINGS: Image quality: Excellent. Bones: No fractures or dislocations. Visualized superior ribs are intact. Extensive postoperative fixation hardware is seen posteriorly from C3 through T2. Anterior fixation hardware is also seen at C3-C4. No findings of hardware failure or hardware loosening are seen. Bone grafting material is noted. Numerous levels of bony vertebral body fusion can be seen. Mild grade 1 anterolisthesis is seen at the C4-C5 level. Soft tissues: Prevertebral soft tissues are normal in thickness. No paravertebral hematomas. No apical pneumothoraces. IMPRESSION: No acute fractures are seen. Extensive postoperative hardware and fusion changes are seen. Dictated by: Curtis Hernandez M.D. on 09/28/2020 at 14:27 Approved by: Curtis Hernandez M.D. on 09/28/2020 at 14:30
[2020-09-28 15:45] LABS: NT-proBNP (BNP-Adult 18+) 140 pg/mL (<450)
--- NOTE | 2020-09-28 15:57 | PC.NURSE ---
late entry, iv attempted, unsuccessful, dressing applied.
== END 2020-09-28 16:29 | disposition home or self-care (01) ==
PROVIDERS: Emergency Provider Emergency Medicine; PCP Student in an Organized Health Care Education/Training Program
DX: I10 Essential (primary) hypertension (principal); M54.2 Cervicalgia; R07.9 Chest pain, unspecified; S09.90XA Unspecified injury of head, initial encounter; W19.XXXA Unspecified fall, initial encounter
CPT/HCPCS: 36415; 70450; 71045; 72125; 80053; 82550; 83690; 83880; 84484; 85025; 85610; 85730; 93005; 93010; 99284

== ENCOUNTER → 2021-11-23 13:38 | Outpatient (CLI) | payer MEDICARE, SELFPAY ==
[2021-11-23 15:08] LABS: BUN Creatinine Ratio 27.7 (6-22); Blood Urea Nitrogen 18 mg/dL (7-17); Calcium 10.5 mg/dL (8.4-10.2); Carbon Dioxide 27 mmol/L (22-32); Chloride 101 mmol/L (98-107); Estimated Glomerular Filt Rate > 60 mL/min (>60); Glucose 101 mg/dL (80-110); HEMOLYSIS < 15 (0-50); Potassium 4.6 mmol/L (3.4-5.1); Sodium 137 mmol/L (137-145)
[2021-11-24 06:34] LABS: Parathyroid Hormone Int 60 pg/mL (15-65)
== END ==
PROVIDERS: PCP Student in an Organized Health Care Education/Training Program; Referring Provider Student in an Organized Health Care Education/Training Program; Visit Provider Student in an Organized Health Care Education/Training Program
DX: E21.3 Hyperparathyroidism, unspecified (principal); I10 Essential (primary) hypertension; Z79.899 Other long term (current) drug therapy
CPT/HCPCS: 36415; 80048; 83970

== ENCOUNTER → 2021-11-28 11:55 | Outpatient (CLI) | payer MEDICARE, SELFPAY | PROVIDERS: PCP Student in an Organized Health Care Education/Training Program; Referring Provider Student in an Organized Health Care Education/Training Program; Visit Provider Student in an Organized Health Care Education/Training Program | DX: Z78.0 Asymptomatic menopausal state (principal); E21.3 Hyperparathyroidism, unspecified; E83.52 Hypercalcemia; M85.89 Other specified disorders of bone density and structure, multiple sites | CPT/HCPCS: 77080 ==

== ENCOUNTER → 2023-07-03 10:55 | Outpatient (CLI) | payer MEDICARE, SELFPAY ==
[2023-07-03 12:44] LABS: Hemoglobin A1C% w Est Avg Glu 5.4 % (4.0-6.0)
[2023-07-03 12:56] LABS: Alanine Aminotransferase 17 IU/L (<35); Albumin 4.3 g/dL (3.5-5.0); Albumin Globulin Ratio 1.3 (1.0-2.8); Alkaline Phosphatase 79 U/L (38-126); Aspartate Aminotransferase 26 IU/L (14-36); BUN Creatinine Ratio 49.2 (6-22); Bilirubin Total 0.9 mg/dL (0.2-1.3); Blood Urea Nitrogen 31 mg/dL (7-17); Calcium 10.7 mg/dL (8.4-10.2); Carbon Dioxide 28 mmol/L (22-32); Chloride 103 mmol/L (98-107); Cholesterol 200 mg/dL (140-199); Estimated Glomerular Filt Rate > 60 mL/min (>60); Globulin 3.3 g/dL (1.7-4.1); Glucose 101 mg/dL (80-110); HDL Cholesterol 75 mg/dL (40-60); HEMOLYSIS < 15 (0-50); LDL Cholesterol Calculated 111 mg/dL (<100); Sodium 141 mmol/L (137-145); Total Protein 7.6 g/dL (6.3-8.2); Triglycerides 70 mg/dL (35-150)
[2023-07-03 13:13] LABS: Free T4, Direct Thyroxine 1.26 ng/dL (0.78-2.19)
[2023-07-03 13:15] LABS: Free T3, Triiodothyronine Free 4.64 pg/mL (2.77-5.27)
[2023-07-03 13:27] LABS: Thyroid Stimulating Hormone 1.75 uIU/mL (0.47-4.68)
[2023-07-03 15:36] LABS: Microalbumi Creatinin Ratio Ur 31.3 ug/mg CR (<30); Microalbumin Urine Random 2.6 mg/dL (0-1.6)
[2023-07-05 08:36] LABS: Calcium 10.8 mg/dL (8.7-10.3); Parathyroid Hormone, Intact 66 pg/mL (15-65)
== END ==
PROVIDERS: PCP Nurse Practitioner; Referring Provider Nurse Practitioner; Visit Provider Nurse Practitioner
DX: Z79.899 Other long term (current) drug therapy (principal); I10 Essential (primary) hypertension; Z13.1 Encounter for screening for diabetes mellitus; Z13.6 Encounter for screening for cardiovascular disorders; E21.3 Hyperparathyroidism, unspecified; R29.6 Repeated falls
CPT/HCPCS: 36415; 80053; 80061; 82043; 82310; 82570; 83036; 83970; 84439; 84443; 84481

== ENCOUNTER → 2023-11-26 12:15 | Outpatient (CLI) | payer MEDICARE, SELFPAY ==
--- NOTE | 2023-11-26 12:17 | DI.ECHO.S_ITS ---
[facility] : : [id number] : : [address] : : [id number] : : Phone: [phone] Echocardiogram Report + + :Name: CESARIO DRAKE Study Date: 11/26/2023 Height: 67 in : :[facility] ReadingLocation: Weight: 140 lb : : Gender: Female BSA: 1.7 m2 : :: 1935 Age: 88 yrs BP: 203/86 mmHg: :Reason For Study: ESSENTIAL HYPERTENSION : :Ordering Physician: RUSS, : :ELOISA Performed By: Hiram Swanson : :Referring: ELOISA SOLANO : + + Interpretation Summary Normal sinus rhythm; uncontrolled hypertension. Normal LV size and wall thickness. Normal wall motion and LV systolic function. Ejection fraction 60-65%. Stage I diastolic dysfunction. Mild mitral annular calcification. Aortic valve leaflets are moderately thickened and calcified and demonstrate moderately reduced leaflet excursion. There is mild associated aortic stenosis. Leaflets are not well-seen but appear exactly the same as they did on prior echo 03/29/2018. Otherwise there are no significant valvular abnormalities. Compared to prior study March 29, 2018, blood pressure is worse. Aortic valve appearance is stable. Procedure: A two-dimensional transthoracic echocardiogram with color flow and Doppler was performed. The study quality was technically adequate. Comparison is made with the echocardiogram of 03/29/2018. The patient was in sinus rhythm with heart rates between 70-82 bpm during the exam. Left Ventricle: The left ventricle is normal in size and wall thickness. The ejection fraction is estimated to be 60-65%. Right Ventricle: The right ventricle is not well visualized. Atria: The left atrium grossly appears normal in size. Right atrium not well visualized. The interatrial septum grossly appears intact with no obvious evidence for an atrial septal defect. Mitral Valve: There is mild mitral annular calcification. There is no mitral valve stenosis. There is trace mitral regurgitation. Aortic Valve: The aortic valve is not well visualized. The aortic valve is moderately calcified. There is mild aortic stenosis. The peak aortic velocity is 2.51 m/sec. The aortic valve mean gradient is 13.6 mmHg. The calculated aortic valve area is 1.2 cm2. There is trace aortic regurgitation. Tricuspid Valve: The tricuspid valve is not well visualized. There is no tricuspid stenosis. There is mild tricuspid regurgitation. The right ventricular systolic pressure is estimated to be at least 37 mmHg based on an estimated right atrial pressure of 3 mm Hg. Pulmonic Valve: The pulmonic valve is not well visualized. There is no pulmonic valvular stenosis. There is no pulmonic valvular regurgitation. Great Vessels: The aortic root is normal size. The ascending aorta could not be visualized. The IVC is of normal diameter and collapses greater than 50% with a sniff. This suggests a low right atrial pressure of 3 mm Hg. Pericardium/ Pleura There is no pericardial effusion. There is no pleural effusion. MMode/2D Measurements & Calculations LVIDd: 4.7 cm LVOT diam: 1.8 cm LVIDs: 2.8 cm Ao root diam: 2.5 cm FS: 40.8 % asc Aorta Diam: 2.6 cm IVSd: 1.0 cm LVPWd: 0.88 cm LV ceballos. diameter/BSA (cm/m^2): 2.7 LV sys. diameter/BSA (cm/m^2): 1.6 LA A2 area: 15.6 cm2 IVC diam: 1.5 cm LA A4 area: 16.3 cm2 LA length (vol): 4.9 cm LA vol: 44.2 ml LA vol index: 25.4 ml/m2 Doppler Measurements & Calculations Ao V2 max: 251.5 cm/sec LVOT Max Curt: 124.2 cm/sec Ao V2 mean: 173.4 cm/sec LV V1 max P.2 mmHg Ao max P.3 mmHg LV V1 VTI: 27.4 cm Ao mean P.6 mmHg MEGHANA(I,D): 1.2 cm2 Ao V2 VTI: 58.1 cm MEGHANA(V,D): 1.3 cm2 sev ratio: 0.47 MEGHANA indexed to BSA (cm^2/m^2): 0.70 MV E max curt: 53.3 cm/sec TR max curt: 291.6 cm/sec MV A max curt: 96.7 cm/sec TR max P.0 mmHg MV E/A: 0.55 PA V2 max: 102.3 cm/sec Med Peak E' Curt: 5.5 cm/sec PA V2 mean: 69.3 cm/sec E/E' med: 9.8 PA mean P.2 mmHg Lat Peak E' Curt: 5.6 cm/sec PA pr(Accel): 32.8 mmHg E/E' lat: 9.6 E/e' average: 9.7 MV dec time: 0.24 sec SV(LVOT): 70.8 ml Electronically signed by: Triny Moseley M.D. on Reading Physician:11/26/2023 05:01 PM
--- NOTE | 2023-11-26 12:17 | DI.RAD.S_ITS ---
PROCEDURE: XR DEXA AXIAL SKELETON INDICATIONS: post menopausal osteoporosis COMPARISON: [facility], CR, XR DEXA AXIAL SKELETON, 11/28/2021, 12:25. FINDINGS: Lumbar Spine: Bone mineral density 1.379 g/cm2, T score 3.6 Left Hip: Bone mineral density 0.533 g/cm2, T score -3.4. Left Femoral Neck: Bone mineral density 2.98 g/cm2, T score -3.3 Right Hip: Bone mineral density 0.640 g/cm2, T score -2.5 Right Femoral Neck: Bone mineral density 0.607 g/cm2, T score -2.2 Fracture Risk Calculation (when applicable): In the right hip, 10-year fracture risk of a major osteoporotic fracture 20 percent and of a hip fracture 6.4 percent. In left hip, 10-year fracture risk of a major osteoporotic fracture 29 percent and of a hip fracture 12 percent. (T score greater or equal to -1.0 to: NORMAL) (T score from -1.1 to -2.4: OSTEOPENIA) (T score less than or equal to -2.5: OSTEOPOROSIS) IMPRESSION: Osteoporosis Follow-up guidelines as follows: Osteoporosis: Consider a repeat DEXA and Vertebral Fracture Assessment (VFA) exam in 2 years or sooner if medically necessary, to reassess this patient's status. Osteopenia: Consider a repeat DEXA in 2-3 years to reassess this patient's status, or if there is a new clinical indication. Normal: Consider a repeat DEXA in 5 years or sooner, or if there is a new clinical indication. All treatment decisions require clinical judgment and consideration of individual patient factors, including patient preferences, comorbidities, previous drug use, risk factors not captured in the FRAX model (e.g., frailty, falls, vitamin D deficiency, increased bone turnover, interval significant decline in bone density ) and possible under- or over-estimation of fracture risk by FRAX. In addition, the NOF Guide recommends that FDA-approved medical therapies be considered in postmenopausal women and men age >= 50 years with a: * Hip or vertebral (clinical or morphometric) fracture * T-score of <=-2.5 at the spine or hip * Ten-year fracture probability by FRAX of >= 3% for hip fracture or >=20% for major osteoporotic fracture. People with diagnosed cases of osteoporosis or at high risk for fracture should have regular bone mineral density tests. For patients eligible for Medicare, routine testing is allowed once every 2 years. The testing frequency can be increased to one year for patients who have rapidly progressing disease, those who are receiving or discontinuing medical therapy to restore bone mass, or have additional risk factors. Approved by: Mica Peres M.D.,Ph.D. on 11/26/2023 at 21:17
== END ==
PROVIDERS: PCP Nurse Practitioner; Referring Provider Nurse Practitioner; Visit Provider Nurse Practitioner
DX: M81.0 Age-related osteoporosis without current pathological fracture (principal); I10 Essential (primary) hypertension; I08.3 Combined rheumatic disorders of mitral, aortic and tricuspid valves
CPT/HCPCS: 77080; 93306

== ENCOUNTER 2024-02-28 11:24 | Emergency (ER) | payer MEDICARE, SELFPAY ==
[2024-02-28 11:37] VITALS: BP 197/91; PULSE 79; RESP 18; TEMP 36.6; O2SAT 98; BMI 20.9
--- NOTE | 2024-02-28 11:46 | DI.RAD.S_ITS ---
PROCEDURE: XR HIP W PEL IF DONE LT 2V INDICATIONS: fall two days ago, pain TECHNIQUE: AP pelvis with lateral view(s) of the left hip(s). COMPARISON: None. FINDINGS: Bones: No fractures or dislocations. Pelvic ring appears intact. No suspicious bony lesions. Moderate bilateral hip DJD. Degenerative change at the lower lumbar spine. Soft tissues: The visualized bowel gas pattern is normal. No suspicious soft tissue calcifications. IMPRESSION: Moderate bilateral hip DJD. Dictated by: Stuart Vasquez M.D. on 02/28/2024 at 14:01 Approved by: Stuart Vasquez M.D. on 02/28/2024 at 14:03
--- NOTE | 2024-02-28 12:21 | ED.FALL ---
HPI - Fall <Luis F Salmeron PA-C - Last Filed: 02/28/24 14:34> General Chief Complaint: Fall Stated Complaint: back pain, fall t-2 Time Seen by Provider: 02/28/24 12:03 Source: patient Mode of arrival: Wheelchair History of Present Illness HPI Narrative: This is a 89-year-old female presents to the emergency department due to a mechanical ground level fall where she tripped over something in the bathroom and hit the side of her left hip against door frame 2 days ago. She had not hit her head or lose conscious. She was complaining of solely of pain in her left hip and left flank area. She states that she was developed a ?bump? to the left flank area which has been decreasing in size over the last few days. She was not hit her head or lose conscious, denies chest pain, shortness of breath, nausea, vomiting, abdominal pain, or any other concerning signs or symptoms. Takes a 81 mg aspirin daily. Related Data Home Medications Medication Instructions Recorded Confirmed BIOTIN/CA/CR/CU/FOLIC ACID/I 1 ctb PO ##0 12/21/10 02/04/24 (CENTRUM SILVER) [VITAMIN D] 1,000 iu ##0 12/21/10 02/04/24 [turmeric] ##0 04/15/16 02/04/24 aspirin 81 mg tablet,delayed 81 mg PO DAILY 03/19/18 02/04/24 release ibuprofen 200 mg-diphenhydramine 2 cap PO BEDTIME PRN 03/19/18 02/04/24 HCl 25 mg capsule (Advil PM Liqui-Gels) calcium citrate 315 mg 1 tab PO DAILY 09/26/19 02/04/24 calcium-vitamin D3 6.25 mcg (250 unit) tablet (Citracal + Vitamin D Maximum) Previous Rx's Medication Instructions Recorded conjugated estrogens 0.625 mg 0.625 mg PO QDAY #90 tabs 07/03/23 tablet (Premarin) furosemide 20 mg tablet 20 mg PO DAILY PRN weight gain #90 07/03/23 tabs lisinopril 40 mg tablet 40 mg PO DAILY #90 tabs 07/03/23 DISABLED PARKING PERMIT #1 ea 02/04/24 alendronate 70 mg tablet 70 mg PO QWEEK #12 tabs 02/04/24 Allergies Allergy/AdvReac Type Severity Reaction Status Date / Time Penicillins [PENICILLINS] Allergy Severe Rash and Verified 02/04/24 13:35 anaphlaxis codeine [CODEINE] Allergy Mild Nausea & Verified 02/04/24 13:35 Vomiting Review of Systems <Luis F Salmeron PA-C - Last Filed: 02/28/24 14:34> Review of Systems Narrative: GENERAL: Denies chills, fatigue, malaise, fever, sweats. HEENT: Denies sinus pain, ear pain, sore throat, difficulty swallowing, dizziness. RESPIRATORY: Denies dyspnea, cough, wheezing, hemoptysis, sputum. CARDIOVASCULAR: Denies chest pain, palpitations, orthopnea, edema, GASTROINTESTINAL: Denies nausea, vomiting, abdominal pain, diarrhea, constipation, melena. : Denies dysuria, frequency, incontinence, hematuria, urinary retention. MUSCULOSKELETAL: Reports left hip and left flank pain, denies weakness, joint pain, or bony pain SKIN: Denies rash, skin lesions, or other NEUROLOGIC: Denies weakness, headache, numbness, change in speech, confusion, seizures, incoordination. PSYCHIATRIC: No concerning psychosocial issues. 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) Vertigo (1969) Hemorrhoids (1966) Fibroids (1987) History of heavy periods (1987) Chicken pox (~1940) Measles (193) Acne Eczema Chronic back pain (1994) Foot pain (2012) Fractures Asthma (1940) Hayfever (1940) Hypertension C7 cervical fracture Surgical History History of spinal fusion (05/20/17) Anesthesia History of arthroscopy of knee History of lumbosacral spine surgery (2010) History of cervical spinal surgery (2005) History of ankle surgery (1979) History of knee replacement (2007) Status post hysterectomy (1987) Status post tonsillectomy and adenoidectomy (1940) Family History Father Diabetes mellitus Heart disease Brother No problems noted. Grandfather No problems noted. Grandmother No problems noted. Mother Pancreatic cancer Grandmother No problems noted. Social History Smoking Status: Never smoker Smoking Status: Never smoker alcohol intake frequency: holidays/special occasions only Substance Use Type: does not use Exam <Luis F Salmeron PA-C - Last Filed: 02/28/24 14:34> Narrative Exam Narrative: GENERAL: Well-developed patient, in mild distress. HEAD: Atraumatic. Normocephalic. EYES: Pupils equal round and reactive. Extraocular motions intact. No scleral icterus. No injection or drainage. ENT: Nose without bleeding, purulent drainage. Throat without erythema, tonsillar hypertrophy or exudate. Airway patent. NECK: Trachea midline. Non tender EXTREMITIES: Mild tenderness to palpation to the left hip NEURO: AOx3. Cranial nerves 2-12 intact SKIN: No rash or erythema of visible areas CARDIOVASCULAR: Regular rate and rhythm without murmurs, gallops, or rubs. RESPIRATORY: Clear to auscultation. Breath sounds equal bilaterally. No wheezes, rales, or rhonchi. GASTROINTESTINAL: Abdomen soft, non-tender, nondistended. BACK: Hematoma approximately 10 cm in diameter with some mild ecchymosis affecting the left flank area Initial Vital Signs Initial Vital Signs: Vital Signs Temperature 98 F 02/28/24 11:37 Pulse Rate 79 02/28/24 11:37 Respiratory Rate 18 02/28/24 11:37 Blood Pressure 197/91 H 02/28/24 11:37 Pulse Oximetry 98 02/28/24 11:37 Oxygen Delivery Method Room Air 02/28/24 11:37 <Chikis Grossman MD - Last Filed: 02/28/24 18:12> Initial Vital Signs Initial Vital Signs: Vital Signs Temperature 98 F 02/28/24 11:37 Pulse Rate 79 02/28/24 11:37 Respiratory Rate 18 02/28/24 11:37 Blood Pressure 197/91 H 02/28/24 11:37 Pulse Oximetry 98 02/28/24 11:37 Oxygen Delivery Method Room Air 02/28/24 11:37 Course <Luis F Salmeron PA-C - Last Filed: 02/28/24 14:34> Orders Ordered: ED Orders 02/28/24 11:46 XR hip w pel if done LT 2V Stat Vital Signs Vital signs: Vital Signs - 8 hr 02/28/24 11:37 02/28/24 13:19 02/28/24 14:43 Temperature 98 F 98.8 F Pulse Rate 79 75 Pulse Rate [Orthostatic Lying] 71 Pulse Rate [Orthostatic Sitting] 77 Pulse Rate [Orthostatic Standing] 86 Respiratory Rate 18 16 Blood Pressure 197/91 H 194/89 H Blood Pressure [Orthostatic Lying] 195/79 H Blood Pressure [Orthostatic Sitting] 194/80 H Blood Pressure [Orthostatic Standing] 192/81 H Pulse Oximetry 98 98 Oxygen Delivery Method Room Air Room Air <Chikis Grossman MD - Last Filed: 02/28/24 18:12> Orders Ordered: ED Orders 02/28/24 11:46 XR hip w pel if done LT 2V Stat Vital Signs Vital signs: Vital Signs - 8 hr 02/28/24 11:37 02/28/24 13:19 02/28/24 14:43 Temperature 98 F 98.8 F Pulse Rate 79 75 Pulse Rate [Orthostatic Lying] 71 Pulse Rate [Orthostatic Sitting] 77 Pulse Rate [Orthostatic Standing] 86 Respiratory Rate 18 16 Blood Pressure 197/91 H 194/89 H Blood Pressure [Orthostatic Lying] 195/79 H Blood Pressure [Orthostatic Sitting] 194/80 H Blood Pressure [Orthostatic Standing] 192/81 H Pulse Oximetry 98 98 Oxygen Delivery Method Room Air Room Air MDM - Fall <Luis F Salmeron PA-C - Last Filed: 02/28/24 14:34> Imaging Data Extremity x-ray #1: Radiologist's Impression: [address] [address] XRay Report Signed Patient: Betzy Aviles MR#: [id number] : 1935 Acct:[id number] Age/Sex: 89 / F Date of Service: 02/28/24 Loc: ED Accession Number: [id number] Procedure: XR hip w pel if done LT 2V Ordering Provider: Chikis Grossman MD PROCEDURE: XR HIP W PEL IF DONE LT 2V INDICATIONS: fall two days ago, pain TECHNIQUE: AP pelvis with lateral view(s) of the left hip(s). COMPARISON: None. FINDINGS: Bones: No fractures or dislocations. Pelvic ring appears intact. No suspicious bony lesions. Moderate bilateral hip DJD. Degenerative change at the lower lumbar spine. Soft tissues: The visualized bowel gas pattern is normal. No suspicious soft tissue calcifications. IMPRESSION: Moderate bilateral hip DJD. Dictated by: Stuart Vasquez M.D. on 02/28/2024 at 14:01 Approved by: Stuart Vasquez M.D. on 02/28/2024 at 14:03 [facility] Narrative Medical decision making narrative: ED course: This is a 89-year-old female presenting to the emergency department after a mechanical ground level fall where she injured her left hip. Left hip x-ray unremarkable for any acute fractures. She was noted to have a hematoma to the left flank area that she states that has been decreasing over the last couple of days. Patient was placed in abdominal binder to provide compression to the area and instructed to follow up with the primary care provider for repeat evaluation and hopeful improvement. Patient was not orthostatic and does not report any symptoms when going from a seated to standing position. Low concern for any kind of internal bleed. No other pain otherwise. She had a reassuring neuro examined did not hit her head. CC: Left hip pain Complicating co-morbidities: As below Data collected from: Previous notes Medical records reviewed: Patient was seen 3 years ago due to a fall. History of vertigo. History of vertebral fracture and surgical repair x2 in the cervical region with the most recent being in 2005. History of hysterectomy as well as lower back surgery. Takes aspirin 81 mg daily. History of osteoporosis. Workup was reassuring and eventually discharged. Differential considered, but not limited to: Fracture, internal bleed, hematoma, Exam documented above, pertinent findings include: Tenderness to palpation to the left hip as well as left flank hematoma Lab Test results independently reviewed as above. Pertinent findings: None obtained Imaging studies independently reviewed: Left hip x-ray negative fracture Scores Used: None MIPS Elements: None Consultations: None Treatments: Abdominal binder placed Re-evaluations: None Discussion: Discussed plan with the patient was comfortable with the plan Diagnosis: Flank hematoma Disposition: see below, along with detailed discharge instructions that have been reviewed with patient as well as indications for ED re-evaluation and additional outpatient follow up Discharge Plan Departure Patient Disposition: Home Clinical Impression: Hematoma, Contusion of hip, left Activity Restrictions/Additional Instructions: Thank you for coming to the [facility] Emergency Department today. As we discussed the left hip x-ray was negative for any acute fractures. Please use the abdominal binder to help compress the hematoma to her left flank. Please follow up with the primary care provider in about a week for re-evaluation. I recommend Tylenol as needed for any pain. Please return to the emergency department if you develop any severe new or worsening pain, loss of conscious, or any other concerning signs or symptoms. I hope you feel better soon. Please follow up with your primary care provider within a week if your symptoms continue. If you do not have a primary care provider please contact the [facility] Resource line at [phone]. They will ask some questions about your medical history and help you get set up with a provider in the community. Prescriptions: No Action (DME) DISABLED PARKING PERMIT See Rx Instructions .ROUTE .MEDSUPPLY Qty: 1 0RF Rx Instructions: I FIND THIS PATIENT TO BE MEDICALLY DISABLED AND QUALIFIED FOR DISABLE PARKING INDICATED, AND SIGNED ON THE ACCOMPANYING [employer] PARK APPLICATION FOR INDIVIDUALS alendronate 70 mg tablet 70 mg PO QWEEK Qty: 12 3RF BIOTIN/CA/CR/CU/FOLIC ACID/I (CENTRUM SILVER) 1 ctb PO Qty: 0 [VITAMIN D] 1,000 iu Qty: 0 [turmeric] Qty: 0 aspirin 81 mg tablet,delayed release (DR/EC) 81 mg PO DAILY ibuprofen-diphenhydramine HCl [Advil PM Liqui-Gels] 200-25 mg capsule 2 cap PO BEDTIME PRN calcium citrate-vitamin D3 [Citracal + D Maximum] 315 mg- 250 unit tablet 1 tab PO DAILY furosemide 20 mg tablet 20 mg PO DAILY PRN (Reason: weight gain) Qty: 90 4RF Rx Instructions: Use for 3 days if more than 3 pounds of weight gain. lisinopril 40 mg tablet 40 mg PO DAILY Qty: 90 3RF Premarin 0.625 mg tablet 0.625 mg PO QDAY Qty: 90 3RF Referrals: Treva Maria MD [Primary Care Provider] - Stand Alone Forms: Patient Portal/API ED Sign-out <Chikis Grossman MD - Last Filed: 02/28/24 18:12> Cosign ED Attending Julio Attestation: I was immediately available in the department for consultation throughout this patient's visit. Chikis Grossman MD
[2024-02-28 13:19] VITALS: BP 192/81; BP 194/80; BP 195/79; PULSE 71; PULSE 77; PULSE 86
[2024-02-28 14:43] VITALS: BP 194/89; PULSE 75; RESP 16; TEMP 37.1; O2SAT 98
== END 2024-02-28 14:44 | disposition home or self-care (01) ==
PROVIDERS: Emergency Provider Physician Assistant Medical; PCP Student in an Organized Health Care Education/Training Program
DX: S70.02XA Contusion of left hip, initial encounter (principal); R10.9 Unspecified abdominal pain; W01.0XXA Fall on same level from slipping, tripping and stumbling without subsequent striking against object, initial encounter; Z79.82 Long term (current) use of aspirin
CPT/HCPCS: 73502; 99283

== ENCOUNTER 2024-04-02 12:39 | Emergency (ER) | payer MEDICARE, SELFPAY ==
[2024-04-02 13:04] VITALS: BP 129/71; PULSE 74; RESP 18; TEMP 36.9; O2SAT 97; BMI 19.5
--- NOTE | 2024-04-02 13:09 | DI.RAD.S_ITS ---
PROCEDURE: XR CHEST 2V INDICATIONS: cough TECHNIQUE: 2 views of the chest were acquired. COMPARISON: [facility], CR, XR CHEST 1V, 09/28/2020, 12:22. FINDINGS: Surgical changes and devices: Posterior surgical fusion of the cervicothoracic spine. Lungs and pleura: Lungs are clear. No pleural effusions or pneumothorax. Mediastinum: Mediastinal contours are normal. Heart size is normal. Bones and chest wall: No suspicious bony abnormalities. Soft tissues appear unremarkable. IMPRESSION: No acute cardiopulmonary abnormality is seen. Dictated by: Norman Ferrara M.D. on 04/02/2024 at 13:33 Approved by: Norman Ferrara M.D. on 04/02/2024 at 13:33
--- NOTE | 2024-04-02 15:54 | ED_ITS ---
HPI - URI/Sore Throat <Sandra Ying PA-C - Last Filed: 04/02/24 16:16> General Chief Complaint: Upper Respiratory Symptoms Stated Complaint: poss pneumonia Time Seen by Provider: 04/02/24 15:29 Source: patient Mode of arrival: Wheelchair History of Present Illness HPI Narrative: Ms. Aviles is a pleasant 89-year-old female with a past medical history of hypertension, hyperparathyroidism who presents to the emergency department for cough x1 week. Patient is accompanied by her friend/neighbor who contributes to the history. Reports that the patient has had a cough for the last week that is occasionally productive at night. The patient's friend who is with her is currently being treated for mycoplasma pneumoniae. Patient states she was seen in the walk-in clinic 2 days ago and was prescribed Tessalon Perles which have not resolved her cough. She admits to feeling more fatigued. Denies chest pain, shortness of breath, edema, nausea, vomiting, fever, sore throat, chills. States that she had asthma as a child but has not used an inhaler in many years. Nonsmoker Related Data Home Medications Medication Instructions Recorded Confirmed BIOTIN/CA/CR/CU/FOLIC ACID/I 1 ctb PO ##0 12/21/10 03/30/24 (CENTRUM SILVER) [VITAMIN D] 1,000 iu ##0 12/21/10 03/30/24 [turmeric] ##0 04/15/16 03/30/24 aspirin 81 mg tablet,delayed 81 mg PO DAILY 03/19/18 03/30/24 release ibuprofen 200 mg-diphenhydramine 2 cap PO BEDTIME PRN 03/19/18 03/30/24 HCl 25 mg capsule (Advil PM Liqui-Gels) calcium citrate 315 mg 1 tab PO DAILY 09/26/19 03/30/24 calcium-vitamin D3 6.25 mcg (250 unit) tablet (Citracal + Vitamin D Maximum) Previous Rx's Medication Instructions Recorded conjugated estrogens 0.625 mg 0.625 mg PO QDAY #90 tabs 07/03/23 tablet (Premarin) furosemide 20 mg tablet 20 mg PO DAILY PRN weight gain #90 07/03/23 tabs lisinopril 40 mg tablet 40 mg PO DAILY #90 tabs 07/03/23 DISABLED PARKING PERMIT #1 ea 02/04/24 alendronate 70 mg tablet 70 mg PO QWEEK #12 tabs 02/04/24 benzonatate 100 mg capsule 100 mg PO BID PRN cough #20 caps 03/30/24 azithromycin 250 mg tablet See Rx Instructions PO .COMPLEX #6 04/02/24 tabs Allergies Allergy/AdvReac Type Severity Reaction Status Date / Time Penicillins [PENICILLINS] Allergy Severe Rash and Verified 04/02/24 13:09 anaphlaxis codeine [CODEINE] Allergy Mild Nausea & Verified 04/02/24 13:09 Vomiting Review of Systems <Sandra Ying PA-C - Last Filed: 04/02/24 16:16> Review of Systems ROS Unobtainable: All systems reviewed & are unremarkable except as noted in HPI and below Patient History <Sandra Ying PA-C - Last Filed: 04/02/24 16:16> Medical History Bilateral lower extremity edema Injury of cervical spine (05/20/17) Hypercalcemia Osteoporosis (2017) Osteopenia (2012) Gluteal abscess (09/02/13) Spinal stenosis, lumbosacral region Spinal stenosis, cervical region Lumbar spine pain (1994) Cervical spine disease (1994) 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) Vertigo (1969) Hemorrhoids (1966) Fibroids (1987) History of heavy periods (1987) Chicken pox (~1940) Measles (1937) Acne Eczema Chronic back pain (1994) Foot pain (2012) Fractures Asthma (1940) Hayfever (1940) Hypertension C7 cervical fracture Surgical History History of spinal fusion (05/20/17) Anesthesia History of arthroscopy of knee History of lumbosacral spine surgery (2010) History of cervical spinal surgery (2005) History of ankle surgery (1979) History of knee replacement (2007) Status post hysterectomy (1987) Status post tonsillectomy and adenoidectomy (1939) Family History Father Diabetes mellitus Heart disease Brother No problems noted. Grandfather No problems noted. Grandmother No problems noted. Mother Pancreatic cancer Grandmother No problems noted. Social History Smoking Status: Never smoker Smoking Status: Never smoker alcohol intake frequency: holidays/special occasions only Substance Use Type: does not use Exam <Sandra Ying PA-C - Last Filed: 04/02/24 16:16> Narrative Exam Narrative: GENERAL: 89 year old patient appears stated age. Well-developed patient, in no acute distress. Sitting in wheelchair. HEAD: Atraumatic. Normocephalic. EYES: PERRL. Extraocular motions intact. No scleral icterus. No injection or drainage. ENT: Nose without bleeding, purulent drainage. Throat without erythema, tonsillar hypertrophy or exudate. Airway patent. NECK: Trachea midline. Cervical ROM intact. CARDIOVASCULAR: Regular rate and rhythm. RESPIRATORY: ?Nonlabored respirations. ?Speaking in clear, full sentences. ?Clear to auscultation. Breath sounds equal bilaterally. No wheezes, rales, or rhonchi. Occasional dry cough. GASTROINTESTINAL: Abdomen soft, non-tender, nondistended. EXTREMITIES: No edema or joint tenderness. BACK: Nontender without deformity or crepitance. No flank tenderness. NEURO: AOx3. ?Clear speech. ?Moves all 4 extremities appropriately. SKIN: No rash or erythema of visible areas Initial Vital Signs Initial Vital Signs: Vital Signs Temperature 98.5 F 04/02/24 13:04 Pulse Rate 74 04/02/24 13:04 Respiratory Rate 18 04/02/24 13:04 Blood Pressure 129/71 04/02/24 13:04 Pulse Oximetry 97 04/02/24 13:04 Oxygen Delivery Method Room Air 04/02/24 13:04 <Jesse Fonseca MD - Last Filed: 04/06/24 15:00> Initial Vital Signs Initial Vital Signs: Vital Signs Temperature 98.5 F 04/02/24 13:04 Pulse Rate 74 04/02/24 13:04 Respiratory Rate 18 04/02/24 13:04 Blood Pressure 129/71 04/02/24 13:04 Pulse Oximetry 97 04/02/24 13:04 Oxygen Delivery Method Room Air 04/02/24 13:04 Course <Sandra Ying PA-C - Last Filed: 04/02/24 16:16> Orders Ordered: ED Orders 04/02/24 13:09 XR chest 2V Stat Vital Signs Vital signs: Vital Signs - 8 hr 04/02/24 13:04 Temperature 98.5 F Pulse Rate 74 Respiratory Rate 18 Blood Pressure 129/71 Pulse Oximetry 97 Oxygen Delivery Method Room Air <Jesse Fonseca MD - Last Filed: 04/06/24 15:00> Orders Ordered: ED Orders 04/02/24 13:09 XR chest 2V Stat Vital Signs Vital signs: Vital Signs - 8 hr 04/02/24 13:04 Temperature 98.5 F Pulse Rate 74 Respiratory Rate 18 Blood Pressure 129/71 Pulse Oximetry 97 Oxygen Delivery Method Room Air MDM - URI/Sore Throat <Sandra Ying PA-C - Last Filed: 04/02/24 16:16> Medical Records Attestation: I reviewed the patient's medical records. Imaging Data Chest x-ray: My Impression: On my independent interpretation of chest x-ray, no large pleural effusion or pneumothorax. Radiologist's Impression: PROCEDURE: XR CHEST 2V INDICATIONS: cough TECHNIQUE: 2 views of the chest were acquired. COMPARISON: [facility], , XR CHEST 1V, 09/28/2020, 12:22. FINDINGS: Surgical changes and devices: Posterior surgical fusion of the cervicothoracic spine. Lungs and pleura: Lungs are clear. No pleural effusions or pneumothorax. Mediastinum: Mediastinal contours are normal. Heart size is normal. Bones and chest wall: No suspicious bony abnormalities. Soft tissues appear unremarkable. IMPRESSION: No acute cardiopulmonary abnormality is seen. MDM Narrative Medical decision making narrative: 89-year-old female with a past medical history of hypertension presents to the emergency department for cough x1 week. On exam the patient is in no acute distress, nontoxic-appearing, all vital signs within normal limits. Differential diagnosis includes but is not limited to viral URI, bronchitis, pneumonia, asthma exacerbation, pharyngitis, etc.. Physical exam reveals nontoxic patient, lungs clear to auscultation bilaterally. She does have dry cough. Chest x-ray negative for acute infiltrate. Given the duration of patient's symptoms and her known exposure to mycoplasma pneumoniae with close contact, we will treat as possible walking pneumonia with azithromycin. Recommended supportive care and prompt follow up with PCP for repeat evaluation. All of patient's questions were answered, patient stable for discharge. Discharge Plan Departure Patient Disposition: Home Clinical Impression: URI (upper respiratory infection) Qualifiers: URI type: unspecified URI Qualified Code(s): J06.9 - Acute upper respiratory infection, unspecified Instructions: DI for Acute Bronchitis Activity Restrictions/Additional Instructions: Today you were evaluated for an upper respiratory infection. Your chest x-ray is clear however given your persistent cough and your exposure to walking pneumonia, we will be treating you with antibiotics. Please rest and complete the full course of antibiotics. Please follow up with your primary care doctor within the next 2-3 days. Return to the emergency department for any new or worsening symptoms, or any other concerns. Thank you for letting me participate in your care, Sandra Ying PA-C Prescriptions: New azithromycin 250 mg tablet See Rx Instructions .ROUTE .COMPLEX Qty: 6 0RF Rx Instructions: For 250 mg dose pack: take 500 mg today (day 1), then 250 mg for 4 days (days 2-5) No Action (DME) DISABLED PARKING PERMIT See Rx Instructions .ROUTE .MEDSUPPLY Qty: 1 0RF Rx Instructions: I FIND THIS PATIENT TO BE MEDICALLY DISABLED AND QUALIFIED FOR DISABLE PARKING INDICATED, AND SIGNED ON THE ACCOMPANYING [employer] PARK APPLICATION FOR INDIVIDUALS alendronate 70 mg tablet 70 mg PO QWEEK Qty: 12 3RF benzonatate 100 mg capsule 100 mg PO BID PRN (Reason: cough) Qty: 20 0RF BIOTIN/CA/CR/CU/FOLIC ACID/I (CENTRUM SILVER) 1 ctb PO Qty: 0 [VITAMIN D] 1,000 iu Qty: 0 [turmeric] Qty: 0 aspirin 81 mg tablet,delayed release (DR/EC) 81 mg PO DAILY ibuprofen-diphenhydramine HCl [Advil PM Liqui-Gels] 200-25 mg capsule 2 cap PO BEDTIME PRN calcium citrate-vitamin D3 [Citracal + D Maximum] 315 mg- 250 unit tablet 1 tab PO DAILY furosemide 20 mg tablet 20 mg PO DAILY PRN (Reason: weight gain) Qty: 90 4RF Rx Instructions: Use for 3 days if more than 3 pounds of weight gain. lisinopril 40 mg tablet 40 mg PO DAILY Qty: 90 3RF Premarin 0.625 mg tablet 0.625 mg PO QDAY Qty: 90 3RF Referrals: VanGaasbeek,Treva C, MD [Primary Care Provider] - Stand Alone Forms: Patient Portal/API/Survey ED Sign-out <Jesse Fonseca MD - Last Filed: 04/06/24 15:00> Cosign ED Attending Julio Attestation: I was immediately available in the department for consultation. ?This documentation has been reviewed and I agree with assessment and plan. Supervised by Jesse Fonseca MD
[2024-04-02 16:35] VITALS: BP 129/67; PULSE 70; RESP 18; TEMP 37; O2SAT 96
== END 2024-04-02 16:37 | disposition home or self-care (01) ==
PROVIDERS: Emergency Provider Physician Assistant; PCP Student in an Organized Health Care Education/Training Program
DX: J06.9 Acute upper respiratory infection, unspecified (principal)
CPT/HCPCS: 71046; 99281; 99283

== ENCOUNTER → 2025-03-24 11:06 | Outpatient (CLI) | payer MEDICARE, SELFPAY ==
[2025-03-24 12:07] LABS: Add Manual Diff / Slide Review NO; Hematocrit 40.6 % (36-46); Hemoglobin 13.6 g/dL (12.0-16.0); Lymphocytes Absolute Auto 1100 /uL (1100-4500); Mean Corpuscular HGB Conc 33.6 % (30-36); Mean Corpuscular Hemoglobin 30.4 PG (26-34); Mean Corpuscular Volume 90.6 fL (80-100); Platelet Count 169 X10^3/uL (150-400)
[2025-03-24 12:35] LABS: Alanine Aminotransferase 19 IU/L (<35); Albumin 4.3 g/dL (3.5-5.0); Albumin Globulin Ratio 1.5 (1.0-2.8); Alkaline Phosphatase 98 U/L (38-126); Blood Urea Nitrogen 24 mg/dL (7-17); Calcium 10.9 mg/dL (8.4-10.2); Carbon Dioxide 28 mmol/L (22-32); Chloride 104 mmol/L (98-107); Estimated Glomerular Filt Rate > 60 mL/min (>60); Globulin 2.9 g/dL (1.7-4.1); Glucose 96 mg/dL (70-99); HEMOLYSIS < 15 (0-50); Potassium 4.3 mmol/L (3.4-5.1); Sodium 140 mmol/L (137-145); Total Protein 7.2 g/dL (6.3-8.2)
[2025-03-24 13:06] LABS: Thyroid Stimulating Hormone 1.41 uIU/mL (0.47-4.68)
== END ==
PROVIDERS: PCP Family Medicine; Referring Provider Family Medicine; Visit Provider Family Medicine
DX: R60.9 Edema, unspecified (principal)
CPT/HCPCS: 36415; 80053; 84443; 85025

== ENCOUNTER 2025-04-24 16:25 | Emergency (ER) | payer MEDICARE, SELFPAY ==
[2025-04-24] VITALS (23 sets, daily range): BP systolic 190–230; BP diastolic 79–93; PULSE 66–82; RESP 12–18; TEMP 36.7; O2SAT 92–96
--- NOTE | 2025-04-24 17:32 | ED.FALL ---
HPI - Fall General Chief Complaint: Fall Stated Complaint: R knee pain/Fall Time Seen by Provider: 04/24/25 17:26 Source: EMS Mode of arrival: EMS History of Present Illness HPI Narrative: 89-year-old female patient with a history of hypertension and osteoporosis who was going for a run to room to another today at her apartment complex and fell down. She is not sure why. She does not recall tripping or fainting or losing her balance. No leg weakness. She denies any injury. Certainly no head injury or loss of consciousness. She has no pain. She had a similar incident 2 or 3 days ago. The apartment complex and her daughter wanted her evaluated because of 2 falls within the week but no injury. Related Data Home Medications ?Medication ?Instructions ?Recorded ?Confirmed BIOTIN/CA/CR/CU/FOLIC ACID/I 1 ctb PO ##0 12/21/10 03/24/25 (CENTRUM SILVER) [VITAMIN D] 1,000 iu ##0 12/21/10 06/03/24 [turmeric] ##0 04/15/16 06/03/24 aspirin 81 mg tablet,delayed 81 mg PO DAILY 03/19/18 03/24/25 release calcium 315 mg (as 1 tab PO DAILY 09/26/19 03/24/25 citrate)-vitamin D3 6.25 mcg (250 unit) tablet (Citracal + Vitamin D Maximum) Previous Rx's ?Medication ?Instructions ?Recorded DISABLED PARKING PERMIT #1 ea 02/04/24 alendronate 70 mg tablet 70 mg PO QWEEK #12 tabs 02/04/24 lisinopril 40 mg tablet 40 mg PO DAILY #90 tabs 09/15/24 furosemide 20 mg tablet See Rx Instructions PO .COMPLEX 03/24/25 weight gain #90 tabs Allergies Allergy/AdvReac Type Severity Reaction Status Date / Time Penicillins (PENICILLINS) Allergy Severe Rash and Verified 04/24/25 16:43 anaphlaxis codeine (CODEINE) Allergy Mild Nausea & Verified 04/24/25 16:43 Vomiting Review of Systems Review of Systems ROS Unobtainable: All systems reviewed & are unremarkable except as noted in HPI and below Neurologic Neurologic: Reports as per HPI Patient History Medical History (Updated 04/24/25 @ 22:37 by Boni Cheng MD) Bilateral lower extremity edema Injury of cervical spine (05/20/17) Hypercalcemia Osteoporosis (2017) Osteopenia (2012) Gluteal abscess (09/02/13) Spinal stenosis, lumbosacral region Spinal stenosis, cervical region Lumbar spine pain (1994) Cervical spine disease (1994) 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) Vertigo (1969) Hemorrhoids (1966) Fibroids (1987) History of heavy periods (1987) Chicken pox (~1940) Measles (1938) Acne Eczema Chronic back pain (1994) Foot pain (2012) Fractures Asthma (1940) Hayfever (1940) Hypertension C7 cervical fracture Surgical History History of spinal fusion (05/20/17) Anesthesia History of arthroscopy of knee History of lumbosacral spine surgery (2010) History of cervical spinal surgery (2005) History of ankle surgery (1979) History of knee replacement (2007) Status post hysterectomy (1987) Status post tonsillectomy and adenoidectomy (1939) Family History Father Diabetes mellitus Heart disease Brother No problems noted. Grandfather No problems noted. Grandmother No problems noted. Mother Pancreatic cancer Grandmother No problems noted. Social History Smoking Status: Former smoker Smoking Status: Former smoker tobacco type: cigarettes alcohol intake frequency: holidays/special occasions only Exam Narrative Exam Narrative: General: Alert and conversant. No distress. Appears well nourished and well hydrated Craniofacial: No evidence of trauma. Nontender and no swelling. Eyes: PERRLA EOMI conjunctiva clear HEENT: Tragus, pinnae nontender. Tympanic membranes normal appearance. Oropharynx clear with no swelling, exudate or asymmetry of the pharynx. Nares clear. No sinus tenderness Neck: No tenderness or adenopathy. No meningismus. No JVD Lungs: Clear to auscultation with good air movement. No wheezing, rales or rhonchi. No respiratory distress Cardiac: Regular rate and rhythm with no appreciable murmur or gallop Abdomen: Soft, nontender with no distention or masses. Normal bowel sounds. No rebound or guarding Musculoskeletal: Exam of the extremities, axial spine and ribcage reveals no deformity, bony tenderness or swelling. Range of motion intact Neuro: Alert and oriented. Cranial nerves, motor, sensory and cerebellar all grossly intact. No focal deficit Skin: Warm and normal color. No rashes Psychological: Normal affect and interaction. No evidence of delusion or psychosis. Normal mood. Initial Vital Signs Initial Vital Signs: Vital Signs Temperature 98.1 F 04/24/25 16:43 Pulse Rate 80 04/24/25 16:43 Respiratory Rate 18 04/24/25 16:43 Blood Pressure 199/81 H 04/24/25 16:43 Pulse Oximetry 95 04/24/25 16:43 Oxygen Delivery Method Room Air 04/24/25 16:43 Course Orders Ordered: ED Orders 04/24/25 17:31 EKG-12 Lead Stat 04/24/25 17:37 CBC Auto Diff [Complete Blood Count AUTO DIFF] Stat CMP [Comprehensive Metabolic Panel] Stat CPK [Creatine Kinase] Stat Magnesium Stat 04/24/25 19:15 Urine Culture Stat 04/24/25 19:31 Urine Culture Stat Urine Microscopic Stat 04/24/25 21:07 XR pelvis 1-2V Stat 04/24/25 21:36 XR knee LT 1to2V Stat 04/24/25 21:39 XR knee RT 1to2V Stat Discontinued Medications Lisinopril (Lisinopril 20 Mg Tablet) 40 mg PO NOW ONE Stop: 04/24/25 20:06 Last Admin: 04/24/25 20:09 Dose: 40 mg Documented By: SB Vital Signs Vital signs: Vital Signs - 8 hr 04/24/25 16:43 04/24/25 16:57 04/24/25 17:00 Temperature 98.1 F Pulse Rate 80 74 75 Respiratory Rate 18 Blood Pressure 199/81 H Pulse Oximetry 95 93 96 Oxygen Delivery Method Room Air 04/24/25 17:01 04/24/25 17:01 04/24/25 17:09 Temperature Pulse Rate 76 Respiratory Rate Blood Pressure 222/88 H 204/83 H Pulse Oximetry 96 Oxygen Delivery Method 04/24/25 17:09 04/24/25 17:30 04/24/25 18:00 Temperature Pulse Rate 72 72 69 Respiratory Rate 18 17 17 Blood Pressure Pulse Oximetry 96 95 92 Oxygen Delivery Method 04/24/25 18:01 04/24/25 18:01 04/24/25 18:30 Temperature Pulse Rate 73 79 Respiratory Rate 18 Blood Pressure 197/82 H Pulse Oximetry 93 Oxygen Delivery Method Room Air 04/24/25 19:30 04/24/25 19:43 04/24/25 19:43 Temperature Pulse Rate 68 71 Respiratory Rate 18 17 Blood Pressure 192/81 H Pulse Oximetry 94 96 Oxygen Delivery Method Room Air 04/24/25 20:00 04/24/25 20:00 04/24/25 20:09 Temperature Pulse Rate 71 71 Respiratory Rate 15 Blood Pressure 203/84 H 203/84 H Pulse Oximetry 95 Oxygen Delivery Method 04/24/25 20:30 04/24/25 20:56 04/24/25 20:56 Temperature Pulse Rate 82 73 Respiratory Rate 15 Blood Pressure 215/86 H Pulse Oximetry 96 95 Oxygen Delivery Method Room Air 04/24/25 20:58 04/24/25 20:58 04/24/25 21:00 Temperature Pulse Rate 72 69 Respiratory Rate 18 12 Blood Pressure 230/93 H Pulse Oximetry 96 95 Oxygen Delivery Method Room Air 04/24/25 21:00 04/24/25 22:03 04/24/25 22:04 Temperature Pulse Rate 69 Respiratory Rate Blood Pressure 208/87 H 211/84 H Pulse Oximetry 92 Oxygen Delivery Method 04/24/25 22:04 Temperature Pulse Rate 69 Respiratory Rate Blood Pressure Pulse Oximetry 95 Oxygen Delivery Method Room Air - Fall Lab Data Attestation: I reviewed the patient's lab results. 04/24/25 17:37 04/24/25 17:37 Labs: Lab Results 04/24/25 04/24/25 Range/Units 17:37 19:31 WBC 7.2 (4.5-11.0) X10^3/uL RBC 4.54 (4.0-5.2) X10^6/uL Hgb 13.7 (12.0-16.0) g/dL Hct 40.7 (36-46) % MCV 89.6 (80-100) fL MCH 30.3 (26-34) PG MCHC 33.8 (30-36) % RDW 14.3 (11.6-14.8) % Plt Count 198 (150-400) X10^3/uL Neut % (Auto) 76.2 H (50-75) % Lymph % (Auto) 14.5 L (25-40) % [place] % (Auto) 7.5 (3-14) % Eos % (Auto) 1.2 L (2-4) % Baso % (Auto) 0.6 (0-2) % Neut # (Auto) 5500 (2148-4041) /uL Lymph # (Auto) 1000 L (5674-8078) /uL [place] # (Auto) 500 (0-900) /uL Eos # (Auto) 100 (0-450) /uL Baso # (Auto) 0 (0-100) /uL Sodium 139 (137-145) mmol/L Potassium 4.1 (3.4-5.1) mmol/L Chloride 106 (98-107) mmol/L Carbon Dioxide 27 (22-32) mmol/L BUN 25 H (7-17) mg/dL Creatinine 0.60 (0.52-1.04) mg/dL Estimated GFR > 60 (>60) mL/min BUN/Creatinine Ratio 41.7 H (6-22) Glucose 108 H (70-99) mg/dL Calcium 10.9 H (8.4-10.2) mg/dL Magnesium 2.3 (1.6-2.3) mg/dL Total Bilirubin 0.8 (0.2-1.3) mg/dL AST 39 H (14-36) IU/L ALT 19 (<35) IU/L Alkaline Phosphatase 93 (38-126) U/L Total Creatine Kinase 41 (30-135) U/L Total Protein 7.4 (6.3-8.2) g/dL Albumin 4.2 (3.5-5.0) g/dL Globulin 3.2 (1.7-4.1) g/dL Albumin/Globulin Ratio 1.3 (1.0-2.8) Urine RBC None seen (0-5/HPF) Urine WBC 0-1/hpf (0-5/HPF) Ur Squamous Epith Cells None seen (0-5/HPF) Urine Bacteria Many (>30) H (None) Ur Culture Indicated? Specimen cultured Vol Urine Centrifuged 10ml (spun) Urine Dip Bedside Urine Glucose Negative Bedside Urine Bilirubin - Negative Bedside Urine Ketone - Negative Urine Specific Joes 1.010 Bedside Urine Occult Blood +/- Bedside Urine pH 7.5 Bedside Urine Protein + 30 Bedside Urine Urobilinogen - Negative Bedside Urine Nitrite - Negative Bedside Urine Leukocytes ++ 125 Esterase Imaging Data Extremity x-ray #1: Attestation: I personally reviewed and interpreted this imaging study as follows: My Impression: Right knee radiographs: Osteoarthritis. No fracture. Effusion Radiologist's Impression: IMPRESSION: Moderate knee joint effusion, without displaced fracture. Severe tricompartmental osteoarthritis. Chondrocalcinosis, which can be seen in the setting of CPPD, aging, and parathyroid disorders. Extremity x-ray #2: Attestation: I personally reviewed and interpreted this imaging study as follows: My Impression: Left knee radiographs: Well aligned knee replacement with no fracture Radiologist's Impression: IMPRESSION: Well-aligned, intact left medial tibiofemoral arthroplasty without hardware complication. Pelvis radiographs: My Impression: No fracture or malalignment evident Radiologist's Impression: IMPRESSION: No displaced fracture. If there remains a high clinical concern or the patient cannot bear weight, consider cross-sectional imaging to exclude an occult fracture. MDM Narrative Medical decision making narrative: Patient had 2 ground level falls with no injury evident and no complaint of pain. Because of family request I did do radiographs of the hips and pelvis which revealed no acute injury. She does have arthritis of the right knee. With effusion. Plan is fall prevention and use of the walker. Follow up closely with primary care, especially regarding the right knee arthritis. Return to the ER if worse Discharge Plan Departure Patient Disposition: Home Clinical Impression: Ground-level fall, Arthritis of knee, right Instructions: How to Prevent Falls Activity Restrictions/Additional Instructions: Plan: Fall avoidance and use walker at all times to avoid falls. Follow up with primary care to address right knee arthritis and other health issues.. Return to the ER if worse Prescriptions: No Action furosemide 20 mg tablet See Rx Instructions PO .COMPLEX Qty: 90 0RF Rx Instructions: Take 1 tab twice/week orally; (DME) DISABLED PARKING PERMIT See Rx Instructions .ROUTE .MEDSUPPLY Qty: 1 0RF Rx Instructions: I FIND THIS PATIENT TO BE MEDICALLY DISABLED AND QUALIFIED FOR DISABLE PARKING INDICATED, AND SIGNED ON THE ACCOMPANYING [employer] APPLICATION FOR INDIVIDUALS alendronate 70 mg tablet 70 mg PO QWEEK Qty: 12 3RF BIOTIN/CA/CR/CU/FOLIC ACID/I (CENTRUM SILVER) 1 ctb PO Qty: 0 [VITAMIN D] 1,000 iu Qty: 0 [turmeric] Qty: 0 lisinopril 40 mg tablet 40 mg PO DAILY Qty: 90 0RF aspirin 81 mg tablet,delayed release (DR/EC) 81 mg PO DAILY calcium citrate-vitamin D3 [Citracal + D Maximum] 315 mg- 250 unit tablet 1 tab PO DAILY Referrals: Mimi Clark MD [Primary Care Provider, Family Practice] Stand Alone Forms: Patient Portal/API
[2025-04-24 17:47] LABS: Add Manual Diff / Slide Review NO; Hematocrit 40.7 % (36-46); Hemoglobin 13.7 g/dL (12.0-16.0); Lymphocytes Absolute Auto 1000 /uL (1100-4500); Mean Corpuscular HGB Conc 33.8 % (30-36); Mean Corpuscular Hemoglobin 30.3 PG (26-34); Mean Corpuscular Volume 89.6 fL (80-100); Platelet Count 198 X10^3/uL (150-400)
--- NOTE | 2025-04-24 17:55 | EKG_ITS ---
[address] [address] Test Date: 2025-04-24 Pat Name: Betzy Aviles Department: [facility] Room: Gender: Female Technician Inventory Specialist: oskar : 1935 Requested By: Order Number: [id number] Reading MD: Kelechi Madden MD Measurements Intervals [place] Rate: 70 P: 37 [place]: 150 QRS: -48 QRSD: 102 T: 87 QT: 410 QTc: 442 Interpretive Statements Normal sinus rhythm with sinus arrhythmia Incomplete right bundle branch block Left anterior fascicular block Left ventricular hypertrophy with repolarization abnormality ( R in aVL , Gokul product , Romhilt-Wagoner ) Electronically Signed On 04-25-2025 10:18:00 PST by Kelechi Madden MD
[2025-04-24 18:00] LABS: Alanine Aminotransferase 19 IU/L (<35); Albumin 4.2 g/dL (3.5-5.0); Albumin Globulin Ratio 1.3 (1.0-2.8); Alkaline Phosphatase 93 U/L (38-126); Blood Urea Nitrogen 25 mg/dL (7-17); Calcium 10.9 mg/dL (8.4-10.2); Carbon Dioxide 27 mmol/L (22-32); Chloride 106 mmol/L (98-107); Creatine Kinase 41 U/L (30-135); Estimated Glomerular Filt Rate > 60 mL/min (>60); Globulin 3.2 g/dL (1.7-4.1); Glucose 108 mg/dL (70-99); HEMOLYSIS 65 (0-50); Potassium 4.1 mmol/L (3.4-5.1); Sodium 139 mmol/L (137-145); Total Protein 7.4 g/dL (6.3-8.2)
[2025-04-24 18:15] LABS: Magnesium 2.3 mg/dL (1.6-2.3)
--- NOTE | 2025-04-24 19:51 | PC.NURSE ---
1700: Daughter Keily at [phone] calls to check on mom. Patient gives verbal consent for this RN to update daughter Keily via phone. Keily reports she recently helped move her mom to [facility]. Reports a fall a couple days ago. States she takes Lisinopril 40mg once daily, Lasix 20mg twice a week, alendronate 70mg once per week, tumeric, D3, tylenol PM and calcium supplements. Provider Skylar made aware.
[2025-04-24 19:53] LABS: Culture Indicated Urine Specimen Cultured
--- NOTE | 2025-04-24 20:04 | PC.NURSE ---
Provider made aware of patient blood pressure and home meds. New verbal order for lisinopril 40mg.
--- NOTE | 2025-04-24 20:56 | PC.NURSE ---
Daughter, Keily, calls again to check on patient. This RN again gets verbal consent to talk to her daughter and via the phone. Patient gives verbal consent to talk with them. Updated family. Daughter Keily has concerns for her mother's hips and knees. They are requesting pictures of both and she would also like to speak to the provider. Provider Skylar made aware.
--- NOTE | 2025-04-24 21:07 | DI.RAD.S_ITS ---
PROCEDURE: XR PELVIS 1-2V INDICATIONS: Fall pain TECHNIQUE: 2 view(s) of the pelvis acquired. COMPARISON: None. FINDINGS: Bones: No fractures or dislocations. No suspicious bony lesions. Soft tissues: Visualized bowel gas pattern is normal. No suspicious soft tissue calcifications. IMPRESSION: No displaced fracture. If there remains a high clinical concern or the patient cannot bear weight, consider cross-sectional imaging to exclude an occult fracture. Dictated by: Norman Ferrara M.D. on 04/24/2025 at 22:00 Approved by: Norman Ferrara M.D. on 04/24/2025 at 22:01
--- NOTE | 2025-04-24 21:36 | DI.RAD.S_ITS ---
PROCEDURE: XR KNEE LT 1TO2V INDICATIONS: discomfort TECHNIQUE: 2 views of the knee were acquired. COMPARISON: None. FINDINGS: Bones: No fractures or dislocations. No suspicious bony lesions. Well-aligned, intact left medial tibiofemoral arthroplasty without hardware complication. Soft tissues: No joint effusion. No suspicious soft tissue calcifications. IMPRESSION: Well-aligned, intact left medial tibiofemoral arthroplasty without hardware complication. Dictated by: Norman Ferrara M.D. on 04/24/2025 at 22:01 Approved by: Norman Ferrara M.D. on 04/24/2025 at 22:01
--- NOTE | 2025-04-24 21:39 | DI.RAD.S_ITS ---
PROCEDURE: XR KNEE RT 1TO2V INDICATIONS: discomfort/fall TECHNIQUE: 2 views of the knee were acquired. COMPARISON: None. FINDINGS: Bones: No fractures or dislocations. No suspicious bony lesions. Severe tricompartmental osteoarthritis. Soft tissues: Moderate joint effusion. No suspicious soft tissue calcifications. Chondrocalcinosis. IMPRESSION: Moderate knee joint effusion, without displaced fracture. Severe tricompartmental osteoarthritis. Chondrocalcinosis, which can be seen in the setting of CPPD, aging, and parathyroid disorders. Dictated by: Norman Ferrara M.D. on 04/24/2025 at 22:02 Approved by: Norman Ferrara M.D. on 04/24/2025 at 22:02
--- NOTE | 2025-04-24 22:23 | PC.NURSE ---
Provider Skylar aware of patient vital signs, including her blood pressure. Patient denies any pain or headaches. No new orders at this time.
== END 2025-04-24 23:12 | disposition home or self-care (01) ==
PROVIDERS: Emergency Provider Emergency Medicine; PCP Family Medicine
DX: M13.861 Other specified arthritis, right knee (principal); M25.461 Effusion, right knee; W01.0XXA Fall on same level from slipping, tripping and stumbling without subsequent striking against object, initial encounter
CPT/HCPCS: 36415; 72170; 73560; 80053; 81003; 81015; 82550; 83735; 85025; 87077; 87086; 87186; 93005; 99284

== ENCOUNTER → 2025-05-01 16:11 | Outpatient (CLI) | payer MEDICARE, SELFPAY | PROVIDERS: PCP Family Medicine; Visit Provider Chiropractor | DX: R30.0 Dysuria (principal) | CPT/HCPCS: 87086 ==

== ENCOUNTER 2025-05-09 19:20 | Emergency (ER) | payer MEDICARE, SELFPAY ==
[2025-05-09] VITALS (23 sets, daily range): BP systolic 180–211; BP diastolic 71–119; PULSE 65–86; RESP 15–24; TEMP 36.9; O2SAT 94–96; BMI 25.9
--- NOTE | 2025-05-09 19:43 | DI.CT.S_ITS ---
PROCEDURE: CT HEAD/BRAIN WO CON INDICATIONS: GLF occiptial blow age 89 TECHNIQUE: Noncontrast 4.5 mm thick angled axial sections acquired from the foramen magnum to the vertex, with coronal and sagittal reformats. For radiation dose reduction, the following was used: automated exposure control, adjustment of mA and/or kV according to patient size. COMPARISON: [facility], CT, CT HEAD/BRAIN WO CON, 09/28/2020, 15:02. [facility], CT, HEAD WITHOUT CONTRAST, 05/19/2017, 5:02. FINDINGS: Image quality: Diagnostic. CSF spaces: Basal cisterns are patent. No extra-axial fluid collections. The ventricles are symmetric in size and shape. Brain: No intracranial bleeds or mass effect. There is cerebral volume loss, with resultant ventricular and sulcal prominence. There are periventricular and deep white matter chronic small vessel ischemic changes. There is intracranial internal carotid artery atherosclerosis. Skull and face: Calvarium and visualized facial bones appear intact, without suspicious lesions. Sinuses: Visualized sinuses and mastoids are clear. IMPRESSION: 1. CT head without acute intracranial abnormalities or acute calvarial fractures. 2. Age-related senescent changes and sequela of chronic small vessel ischemic disease. Dictated by: Yevgeniy Ball M.D. on 05/09/2025 at 20:38 Approved by: Yevgeniy Ball M.D. on 05/09/2025 at 20:40
--- NOTE | 2025-05-09 19:44 | DI.CT.S_ITS ---
PROCEDURE: CT CERVICAL SPINE WO CON INDICATIONS: GLF hit back of head, age 89 TECHNIQUE: Noncontrast 3 mm thick sections acquired from the skull base to the T4 level. Sagittal and coronal reformats were then constructed. For radiation dose reduction, the following was used: automated exposure control, adjustment of mA and/or kV according to patient size. COMPARISON: [facility], CT, CT CERVICAL SPINE WO CON, 09/28/2020, 15:02. [facility], CT, C-SPINE WITHOUT CONTRAST, 05/19/2017, 5:02. FINDINGS: Image quality: Diagnostic Bones: No acute fractures or dislocations. No acute compression fractures of the vertebral bodies. Craniocervical junction is intact. C1-C2 relationship is preserved. Visualized superior ribs are intact. Stable appearance of extensive postoperative fixation hardware seen posteriorly from C5 through T2 and prior anterior fusion C3-4. Stable posterior plate fixation of the lamina at C3-4. Stable alignment. Stable minimal anterolisthesis of C4 on C5. Soft tissues: Prevertebral soft tissues are normal in thickness. No paravertebral hematomas. No apical pneumothoraces. IMPRESSION: No displaced fracture or traumatic subluxation. Stable postsurgical changes and alignment multilevel surgical fixation of the cervical spine. Dictated by: Yevgeniy Ball M.D. on 05/09/2025 at 20:40 Approved by: Yevgeniy Ball M.D. on 05/09/2025 at 20:45
--- NOTE | 2025-05-09 20:04 | PC.NURSE ---
cervical collar placed per doctor order, assisted pt to/from CT
--- NOTE | 2025-05-09 20:18 | ED_ITS ---
HPI - Fall General Chief Complaint: Fall Stated Complaint: GLF Time Seen by Provider: 05/09/25 19:43 Source: patient and EMS Mode of arrival: EMS History of Present Illness HPI Narrative: 89-year-old female had ground level fall at home, no chronic blood thinner medications, unclear if she might have loss of consciousness. History of hypertension. No preceding palpitations or chest pain or shortness of breath, no preceding shaking or seizure-like activity, no incontinence of urine or stool, no focal numbness to face arm or leg, focal weakness to face arm or leg. Taking losartan, we will be starting Lasix every other day in the morning, she has been resistant to taking diuretics in the evening due to mobility issues, has history of leg swelling. Related Data Home Medications ?Medication ?Instructions ?Recorded ?Confirmed BIOTIN/CA/CR/CU/FOLIC ACID/I 1 ctb PO ##0 12/21/10 (CENTRUM SILVER) [VITAMIN D] 1,000 iu ##0 12/21/10 [turmeric] ##0 04/15/16 05/01/25 aspirin 81 mg tablet,delayed 81 mg PO DAILY 03/19/18 1 07/02/24 release calcium 315 mg (as 1 tab PO DAILY 09/26/1904/13 citrate)-vitamin D3 6.25 mcg (250 unit) tablet (Citracal + Vitamin D Maximum) ciprofloxacin HCl 250 mg tablet 250 mg PO BID 05/01/25 05/01/25 diphenhydramine 25 2 tab PO BEDTIME PRN 5 05/01/25 mg-acetaminophen 500 mg tablet (Tylenol PM Extra Strength) vitamin A-vit C-vit E-zinc-Cu tab PO DAILY 05/01/25 tablet Previous Rx's ?Medication ?Instructions ?Recorded DISABLED PARKING PERMIT #1 ea 02/04/24 furosemide 20 mg tablet See Rx Instructions PO .COMP GUNNAR 03/24/25 weight gain #90 tabs alendronate 70 mg tablet 70 mg PO QWEEK #12 tabs 04/14 09/05 lisinopril 40 mg tablet 40 mg PO DAILY #90 tabs 04/14 09/05 acetaminophen 325 mg capsule 650 mg (2 x 325 mg) PO Q6 H PRN 05/10/25 pain #20 caps Allergies Allergy/AdvReac Type Severity Reaction Status Date / Time Penicillins (PENICILLINS) Allergy Severe Rash and Verified 05/01/25 17:06 anaphlaxis codeine (CODEINE) Allergy Mild Nausea & Verified 05/01/25 17:06 Vomiting Patient History Medical History (Updated 05/10/25 @ 00:21 by Elvin Crum MD) Bilateral lower extremity edema Injury of cervical spine (05/20/17) Hypercalcemia Osteoporosis (2017) Osteopenia (2012) Gluteal abscess (09/02/13) Spinal stenosis, lumbosacral region Spinal stenosis, cervical region Lumbar spine pain (1994) Cervical spine disease (1994) 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) Vertigo (1969) Hemorrhoids (1966) Fibroids (1987) History of heavy periods (1987) Chicken pox (~1940) Measles (1937) Acne Eczema Chronic back pain (1994) Foot pain (2012) Fractures Asthma (1940) Hayfever (1939) Hypertension C7 cervical fracture Surgical History History of spinal fusion (05/20/17) Anesthesia History of arthroscopy of knee History of lumbosacral spine surgery (2010) History of cervical spinal surgery (2005) History of ankle surgery (1979) History of knee replacement (2007) Status post hysterectomy (1987) Status post tonsillectomy and adenoidectomy (1939) Family History Father Diabetes mellitus Heart disease Brother No problems noted. Grandfather No problems noted. Grandmother No problems noted. Mother Pancreatic cancer Grandmother No problems noted. tobacco type: cigarettes alcohol intake frequency: holidays/special occasions only Exam Narrative Exam Narrative: GENERAL: Well-developed patient, in mild distress. HEAD: Left parietal curvilinear abrasion versus laceration. EYES: Pupils equal round and reactive. Extraocular motions intact. No scleral icterus. No injection or drainage. ENT: Nose without bleeding, purulent drainage. Throat without erythema, tonsillar hypertrophy or exudate. Airway patent. NECK: Trachea midline. Non tender CARDIOVASCULAR: Regular rate and rhythm without murmurs, gallops, or rubs. RESPIRATORY: Clear to auscultation. Breath sounds equal bilaterally. No wheezes, rales, or rhonchi. GASTROINTESTINAL: Abdomen soft, non-tender, nondistended. EXTREMITIES: No edema or joint tenderness. BACK: Nontender without deformity or crepitance. No flank tenderness. NEURO: AOx3. Motor functions grossly nonfocal. SKIN: No rash or erythema of visible areas Initial Vital Signs Initial Vital Signs: Vital Signs Pulse Rate 86 05/09/25 19:24 Pulse Oximetry 94 05/09/25 19:24 Procedures Laceration Repair Laceration 1: Time of procedure: 00:23 Site: scalp Side (If applicable): left Size (cm): 2.5 Description: linear (Curvilinear) Depth: simple, single layer Local Anesthetic: lidocaine 1% Amount of anesthesia used (mL): 4 Skin layer closed with: marta Number of sutures: 6 Course Orders Ordered: ED Orders 05/09/25 19:25 CBC Auto Diff [Complete Blood Count AUTO DIFF] Stat CMP [Comprehensive Metabolic Panel] Stat Prothrombin Time INR Stat Troponin I Stat 05/09/25 19:43 CT head/brain wo con Stat 05/09/25 19:44 CT cervical spine wo con Stat 05/09/25 21:26 EKG-12 Lead Stat 05/09/25 23:30 Troponin I Stat Discontinued Medications Bacitracin (Bacitracin Oint 0.9 Gm Pckt) 1 applic TOP NOW ONE Stop: 05/09/25 23:05 Last Admin: 05/09/25 23:09 Dose: 1 applic Documented By: COLEEN Diphtheria/Tetanus/Acell Pertussis (Tet,Diph,Pertuss(Acell),Vac/Pf 0.5 Ml Syringe) 0.5 ml IM .ONCE ONE Stop: 05/09/25 21:27 Last Admin: 05/09/25 21:40 Dose: 0.5 ml Documented By: COLEEN Hydralazine HCl (Hydralazine 20 Mg/Ml Vial) 5 mg IV NOW ONE Stop: 05/09/25 21:27 Last Admin: 05/09/25 21:40 Dose: 5 mg Documented By: COLEEN Hydralazine HCl (Hydralazine 20 Mg/Ml Vial) 5 mg IV NOW ONE Stop: 05/09/25 22:57 Last Admin: 05/09/25 23:08 Dose: 5 mg Documented By: COLEEN Lidocaine/Epinephrine (Lidocaine 1% W/Epi 10ml) 4 ml INJ INTRA-OP ONE Stop: 05/09/25 21:55 Last Admin: 05/09/25 22:05 Dose: 4 ml Documented By: COLEEN Vital Signs Vital signs: Vital Signs - 8 hr 05/09/25 19:24 05/09/25 19:28 05/09/25 19:28 Temperature Pulse Rate 86 84 Respiratory Rate 24 Blood Pressure 192/79 H Pulse Oximetry 94 94 Oxygen Delivery Method 05/09/25 19:30 05/09/25 19:30 05/09/25 19:30 Temperature 98.5 F Pulse Rate 81 83 Respiratory Rate 20 17 Blood Pressure 186/77 H 186/77 H Pulse Oximetry 94 95 Oxygen Delivery Method Room Air 05/09/25 20:00 05/09/25 20:00 05/09/25 20:01 Temperature Pulse Rate 80 80 Respiratory Rate 18 18 Blood Pressure 211/83 H Pulse Oximetry 95 94 Oxygen Delivery Method 05/09/25 20:02 05/09/25 20:02 05/09/25 20:10 Temperature Pulse Rate 79 Respiratory Rate 18 Blood Pressure 201/77 H 192/71 H Pulse Oximetry 94 Oxygen Delivery Method 05/09/25 20:10 05/09/25 20:30 05/09/25 20:30 Temperature Pulse Rate 78 78 Respiratory Rate 20 19 Blood Pressure 192/80 H Pulse Oximetry 94 95 Oxygen Delivery Method 05/09/25 21:00 05/09/25 21:00 05/09/25 21:30 Temperature Pulse Rate 79 79 Respiratory Rate 24 24 Blood Pressure 203/82 H Pulse Oximetry 95 95 Oxygen Delivery Method 05/09/25 21:31 05/09/25 21:31 05/09/25 21:40 Temperature Pulse Rate 78 77 Respiratory Rate 20 Blood Pressure 202/80 H 180/77 H Pulse Oximetry 95 Oxygen Delivery Method 05/09/25 22:00 05/09/25 22:00 05/09/25 22:10 Temperature Pulse Rate 79 77 Respiratory Rate 20 Blood Pressure 208/84 H 197/92 H Pulse Oximetry 96 Oxygen Delivery Method 05/09/25 22:30 05/09/25 22:31 05/09/25 22:31 Temperature Pulse Rate 83 85 Respiratory Rate 21 17 Blood Pressure 185/119 H Pulse Oximetry 95 96 Oxygen Delivery Method 05/09/25 22:56 05/09/25 22:56 05/09/25 22:59 Temperature Pulse Rate 79 Respiratory Rate 15 Blood Pressure 205/82 H 194/82 H Pulse Oximetry 96 Oxygen Delivery Method 05/09/25 22:59 05/09/25 23:00 05/09/25 23:08 Temperature Pulse Rate 78 76 65 Respiratory Rate 21 23 Blood Pressure 198/82 H Pulse Oximetry 94 94 Oxygen Delivery Method 05/09/25 23:30 05/09/25 23:38 05/09/25 23:58 Temperature Pulse Rate 78 70 Respiratory Rate 21 Blood Pressure 198/88 H 196/79 H Pulse Oximetry 96 Oxygen Delivery Method 05/09/25 23:58 05/10/25 00:00 05/10/25 00:30 Temperature Pulse Rate 79 77 76 Respiratory Rate 24 23 24 Blood Pressure Pulse Oximetry 95 96 95 Oxygen Delivery Method MDM - Fall Lab Data Attestation: I reviewed the patient's lab results. Lab results narrative: White blood cell count 9400, hemoglobin 14.2, platelets adequate. Glucose 137. BUN 28 with creatinine 0.74, normal serum CO2, normal electrolytes. AST slight elevation, other liver functions normal. Initial troponin unmeasurable, repeat troponin measurable but quite low. 05/09/25 19:25 05/09/25 19:25 Labs: Lab Results 05/09/25 05/09/25 Range/Units 19:25 23:30 WBC 9.4 (4.5-11.0) X10^3/uL RBC 4.74 (4.0-5.2) X10^6/uL Hgb 14.2 (12.0-16.0) g/dL Hct 42.4 (36-46) % MCV 89.6 (80-100) fL MCH 30.0 (26-34) PG MCHC 33.4 (30-36) % RDW 14.1 (11.6-14.8) % Plt Count 196 (150-400) X10^3/uL Neut % (Auto) 80.1 H (50-75) % Lymph % (Auto) 14.0 L (25-40) % [place] % (Auto) 4.8 (3-14) % Eos % (Auto) 0.5 L (2-4) % Baso % (Auto) 0.6 (0-2) % Neut # (Auto) 7500 H (6038-2872) /uL Lymph # (Auto) 1300 (5458-5243) /uL [place] # (Auto) 500 (0-900) /uL Eos # (Auto) 0 (0-450) /uL Baso # (Auto) 100 (0-100) /uL PT 11.2 (9.4-12.5) SECONDS INR 1.0 (0.9-1.3) Sodium 140 (137-145) mmol/L Potassium 4.0 (3.4-5.1) mmol/L Chloride 103 (98-107) mmol/L Carbon Dioxide 30 (22-32) mmol/L BUN 28 H (7-17) mg/dL Creatinine 0.74 (0.52-1.04) mg/dL Estimated GFR > 60 (>60) mL/min BUN/Creatinine Ratio 37.8 H (6-22) Glucose 137 H (70-99) mg/dL Calcium 10.3 H (8.4-10.2) mg/dL Total Bilirubin 0.6 (0.2-1.3) mg/dL AST 40 H (14-36) IU/L ALT 20 (<35) IU/L Alkaline Phosphatase 102 (38-126) U/L Troponin I < 0.012 0.015 (0.01-0.034) ng/mL Total Protein 7.7 (6.3-8.2) g/dL Albumin 4.4 (3.5-5.0) g/dL Globulin 3.3 (1.7-4.1) g/dL Albumin/Globulin Ratio 1.3 (1.0-2.8) Imaging Data CT scan - head: Radiologist's Impression: [place] [address] CT Scan Report Signed Patient: Betzy Aviles MR#: [id number] : 1935 Acct:[id number] Age/Sex: 89 / F Date of Service: 05/09/25 Loc: ED Accession Number: [id number] Procedure: CT head/brain wo con Ordering Provider: Elvin Crum MD PROCEDURE: CT HEAD/BRAIN WO CON INDICATIONS: GLF occiptial blow age 89 TECHNIQUE: Noncontrast 4.5 mm thick angled axial sections acquired from the foramen magnum to the vertex, with coronal and sagittal reformats. For radiation dose reduction, the following was used: automated exposure control, adjustment of mA and/or kV according to patient size. COMPARISON: [facility], CT, CT HEAD/BRAIN WO CON, 09/28/2020, 15:02. [facility], CT, HEAD WITHOUT CONTRAST, 05/19/2017, 5:02. FINDINGS: Image quality: Diagnostic. CSF spaces: Basal cisterns are patent. No extra-axial fluid collections. The ventricles are symmetric in size and shape. Brain: No intracranial bleeds or mass effect. There is cerebral volume loss, with resultant ventricular and sulcal prominence. There are periventricular and deep white matter chronic small vessel ischemic changes. There is intracranial internal carotid artery atherosclerosis. Skull and face: Calvarium and visualized facial bones appear intact, without suspicious lesions. Sinuses: Visualized sinuses and mastoids are clear. IMPRESSION: 1. CT head without acute intracranial abnormalities or acute calvarial fractures. 2. Age-related senescent changes and sequela of chronic small vessel ischemic disease. Dictated by: Yevgeniy Ball M.D. on 05/09/2025 at 20:38 Approved by: Yevgeniy Ball M.D. on 05/09/2025 at 20:40 CT - cervical spine: Radiologist's Impression: [place] [address] CT Scan Report Signed Patient: Betzy Aivles MR#: [id number] : 1935 Acct:[id number] Age/Sex: 89 / F Date of Service: 05/09/25 Loc: ED Accession Number: [id number] Procedure: CT cervical spine wo con Ordering Provider: Elvin Crum MD PROCEDURE: CT CERVICAL SPINE WO CON INDICATIONS: GLF hit back of head, age 89 TECHNIQUE: Noncontrast 3 mm thick sections acquired from the skull base to the T4 level. Sagittal and coronal reformats were then constructed. For radiation dose reduction, the following was used: automated exposure control, adjustment of mA and/or kV according to patient size. COMPARISON: [facility], CT, CT CERVICAL SPINE WO CON, 09/28/2020, 15:02. [facility], CT, C-SPINE WITHOUT CONTRAST, 05/19/2017, 5:02. FINDINGS: Image quality: Diagnostic Bones: No acute fractures or dislocations. No acute compression fractures of the vertebral bodies. Craniocervical junction is intact. C1-C2 relationship is preserved. Visualized superior ribs are intact. Stable appearance of extensive postoperative fixation hardware seen posteriorly from C5 through T2 and prior anterior fusion C3-4. Stable posterior plate fixation of the lamina at C3-4. Stable alignment. Stable minimal anterolisthesis of C4 on C5. Soft tissues: Prevertebral soft tissues are normal in thickness. No paravertebral hematomas. No apical pneumothoraces. IMPRESSION: No displaced fracture or traumatic subluxation. Stable postsurgical changes and alignment multilevel surgical fixation of the cervical spine. Dictated by: Yevgeniy Ball M.D. on 05/09/2025 at 20:40 Approved by: Yevgeniy Ball M.D. on 05/09/2025 at 20:45 ECG Data Attestation: I personally reviewed and interpreted this ECG as follows: Interpretation: 2344, sinus rhythm with sinus arrhythmia, incomplete right bundle branch block, LVH. Ventricular response rate 77. VT 138, QRS 102, QTC 448. MDM Narrative Medical decision making narrative: 89-year-old female with unwitnessed ground level fall, did not recall any tripping episode, or any obvious antecedent event causing her to fall, history of frequent falls, no blood thinner medications, struck the back of her head left side, unclear if any loss of consciousness. History of previous neck surgery. No focal neuro deficits. CT head noncontrast, no acute changes. See radiology report. CT cervical spine noncontrast study, no acute changes, postsurgical changes noted. See radiology report. EKG shows sinus rhythm, LVH, incomplete right bundle branch block, rate 77. Lab data: White blood cell count 9400, hemoglobin 14.2, platelets adequate. Glucose 137. BUN 28 with creatinine 0.74, normal serum CO2, normal electrolytes. AST slight elevation, other liver functions normal. Initial troponin unmeasurable, repeat troponin measurable but quite low. Elevated blood pressure, on maximal lisinopril, we will be starting Lasix, consider IV Lasix but patient does not tolerate diuretic at night due to frequent urination. IV hydralazine doses given, blood pressure improved. Advised to follow up with her PCP for further blood pressure treatment, likely restart her oral Lasix as planned. See procedure note, staple primary closure curvilinear left parietal scalp wound. IM Tdap updated. Discharged home with family. Discharge Plan Departure Patient Disposition: Home Clinical Impression: Fall from ground level, Laceration of scalp, Hypertension Activity Restrictions/Additional Instructions: Elevated blood pressure, taking maximal dose lisinopril, planning to have addition of morning/daytime furosemide foreleg swelling symptoms. History of falls. Ground level fall, laceration to the left parietal part of your scalp. No loss of consciousness. CT head showed no bleeding internally in the brain, and no fracture of the skull. CT cervical spine of the neck showed old appearing post surgical changes, no acute injury patterns obvious. Local wound care and cleansing, wound closed with marta. Tetanus shot was given as an update. Elevated blood pressures in the emergency department, IV hydralazine doses were given. Did discuss oral amlodipine but this can cause lower extremity swelling, hold for now. Advised to start your furosemide morning medications as planned to assist with blood pressure control. Wound check advised, with blood pressure Re measurement in the next couple of days with your regular doctor in clinic. Staple removal likely in 7 days. Return earlier to this/nearest emergency department for any change worsening symptoms or any concerns prior. Prescriptions: New acetaminophen 325 mg capsule 650 mg PO Q6H PRN (Reason: pain) Qty: 20 0RF No Action furosemide 20 mg tablet See Rx Instructions PO .COMPLEX Qty: 90 0RF Rx Instructions: Take 1 tab twice/week orally; ciprofloxacin HCl 250 mg tablet 250 mg PO BID (DME) DISABLED PARKING PERMIT See Rx Instructions .ROUTE .MEDSUPPLY Qty: 1 0RF Rx Instructions: I FIND THIS PATIENT TO BE MEDICALLY DISABLED AND QUALIFIED FOR DISABLE PARKING INDICATED, AND SIGNED ON THE ACCOMPANYING [facility]ARK APPLICATION FOR INDIVIDUALS BIOTIN/CA/CR/CU/FOLIC ACID/I (CENTRUM SILVER) 1 ctb PO Qty: 0 [VITAMIN D] 1,000 iu Qty: 0 [turmeric] Qty: 0 vitamin A-vit C-vit E-zinc-Cu Tablet PO DAILY Rx Instructions: [facility] diphenhydramine-acetaminophen [Tylenol PM Extra Strength] 25-500 mg tablet 2 tab PO BEDTIME PRN alendronate 70 mg tablet 70 mg PO QWEEK Qty: 12 3RF lisinopril 40 mg tablet 40 mg PO DAILY Qty: 90 0RF aspirin 81 mg tablet,delayed release (DR/EC) 81 mg PO DAILY calcium citrate-vitamin D3 [Citracal + D Maximum] 315 mg- 250 unit tablet 1 tab PO DAILY Referrals: Mimi Clark MD [Primary Care Provider, Family Practice] Stand Alone Forms: Patient Portal/API
[2025-05-09 21:36] LABS: Add Manual Diff / Slide Review NO; Hematocrit 42.4 % (36-46); Hemoglobin 14.2 g/dL (12.0-16.0); Lymphocytes Absolute Auto 1300 /uL (1100-4500); Mean Corpuscular HGB Conc 33.4 % (30-36); Mean Corpuscular Hemoglobin 30.0 PG (26-34); Mean Corpuscular Volume 89.6 fL (80-100); Platelet Count 196 X10^3/uL (150-400)
[2025-05-09 21:37] LABS: INR 1.0 (0.9-1.3); Prothrombin Time 11.2 SECONDS (9.4-12.5)
[2025-05-09] MEDS: hydrALAZINE 20 MG/ML VIAL 5 MG IV ×2 (21:40→23:08)
[2025-05-09] MEDS: TET,DIPH,PERTUSS(ACELL),VAC/PF 0.5 ML SYRINGE IM (21:40)
[2025-05-09 21:42] LABS: Alanine Aminotransferase 20 IU/L (<35); Albumin 4.4 g/dL (3.5-5.0); Albumin Globulin Ratio 1.3 (1.0-2.8); Alkaline Phosphatase 102 U/L (38-126); Blood Urea Nitrogen 28 mg/dL (7-17); Calcium 10.3 mg/dL (8.4-10.2); Carbon Dioxide 30 mmol/L (22-32); Chloride 103 mmol/L (98-107); Estimated Glomerular Filt Rate > 60 mL/min (>60); Globulin 3.3 g/dL (1.7-4.1); Glucose 137 mg/dL (70-99); HEMOLYSIS 18 (0-50); Potassium 4.0 mmol/L (3.4-5.1); Sodium 140 mmol/L (137-145); Total Protein 7.7 g/dL (6.3-8.2)
[2025-05-09 21:54] LABS: Troponin I < 0.012 ng/mL (0.01-0.034)
[2025-05-09] MEDS: LIDOCAINE 1% W/EPI 10ML 4 ML INJ (22:05)
--- NOTE | 2025-05-09 23:03 | PC.NURSE ---
irrigated wound, and assisted provider in placing marta, topical bacitracin and bandage placed
[2025-05-09] MEDS: BACITRACIN OINT 0.9 GM PCKT 1 APPLIC TOP (23:09)
--- NOTE | 2025-05-09 23:44 | EKG_ITS ---
[address] [address] Test Date: 2025-05-09 Pat Name: Betzy Aviles Department: [facility] Room: Gender: Female Doping Supervisor: NANI : 1935 Requested By: Order Number: [id number] Reading MD: Franky Pinedo Measurements Intervals [place] Rate: 77 P: 68 IA: 138 QRS: -41 QRSD: 102 T: 85 QT: 396 QTc: 448 Interpretive Statements Sinus rhythm with marked sinus arrhythmia Left axis deviation Incomplete right bundle branch block Left ventricular hypertrophy with repolarization abnormality ( R in aVL , Gokul product , Romhilt-Wagoner ) Cannot rule out Septal infarct , age undetermined Electronically Signed On 05-11-2025 10:39:35 PST by Franky Pinedo
[2025-05-10] VITALS: PULSE 77; RESP 23; O2SAT 96
[2025-05-10 00:02] LABS: Troponin I 0.015 ng/mL (0.01-0.034)
[2025-05-10 00:30] VITALS: PULSE 76; RESP 24; O2SAT 95
== END 2025-05-10 00:40 | disposition home or self-care (01) ==
PROVIDERS: Emergency Provider Emergency Medicine; PCP Family Medicine
DX: S01.81XA Laceration without foreign body of other part of head, initial encounter (principal); I10 Essential (primary) hypertension; W18.30XA Fall on same level, unspecified, initial encounter; Z23 Encounter for immunization; Z87.891 Personal history of nicotine dependence
CPT/HCPCS: 12001; 36415; 70450; 72125; 80053; 84484; 85025; 85610; 90471; 93005; 96374; 96376; 99284; 90715; J0360